=== PATIENT | male | born 1930 ===

== ENCOUNTER 2017-08-28 16:44 | Inpatient (IN) | payer MEDICARE, OTHER ==
[2017-08-28] MEDS ORDERED: Succinylcholine Chloride 20 MG/ML 10 ml SYRINGE FS ONE (16:50)
[2017-08-28] MEDS ORDERED: Fentanyl 100 MCG/2 ML VIAL ONE (17:04)
[2017-08-28] MEDS ORDERED: Midazolam HCl 2 mg/2 ml Vial ONE (17:04)
[2017-08-28] MEDS ORDERED: Albuterol Sulfate 2.5 mg/3 ml Neb ONE (17:11)
[2017-08-28] MEDS ORDERED: Albuterol Sulfate 2.5 mg/0.5 ml Neb ONE (17:11)
[2017-08-28] MEDS ORDERED: Fentanyl 20 MCG/ML 250 ML ONE (17:16)
[2017-08-28 17:25] LABS: #Basophils 0.1 thou/uL (0.0-0.2); #Eosinphils 0.8 thou/uL (0.0-0.7); #Lymphocytes 1.2 thou/uL (1.20-3.40); #Monocytes 0.6 thou/uL (0.11-0.59); #Neutrophils 4.4 thou/uL (1.40-6.50); %Basophils 0.9 % (0.0-1.0); %Eosinophils 11.1 % (0.0-10.0); %Lymphocytes 17.4 % (21.0-51.0); %Monocytes 8.7 % (0.0-10.0); Hematocrit 42.8 % (42.0-52.0); Mean Platelet Volume 7.1 fL (7.4-10.4); Red Blood Cell (RBC) Count 4.17 mill/uL (4.70-6.10); White Blood Cell (WBC) Count 7.1 thou/uL (4.8-10.8)
[2017-08-28 17:35] LABS: Oxyhemoglobin 95.2 % (94.0-97.0); Sodium 144 mmol/L (135-148)
[2017-08-28 17:37] LABS: Mechanical Tidal Volume 450 ml; Modified Allen's Test POSITIVE; Vent YES
[2017-08-28 17:38] LABS: Mode SIMV; Pressure Support 10 cmH2O
[2017-08-28 17:46] LABS: ALT (SGPT) 14 U/L (8-55); AST (SGOT) 14 U/L (5-34); Alkaline Phosphatase 89 U/L (40-150); Anion Gap 16 mmol/L (10-20); BUN (Urea Nitrogen) 20 mg/dL (8.4-25.7); Bilirubin, Total 0.4 mg/dL (0.2-1.2); Calc. Creatinine Clearance 0 mL/min (70-130); Calcium 9.1 mg/dL (7.8-10.44); Carbon Dioxide 26 mmol/L (23-31); Chloride 107 mmol/L (98-107); Estimated GFR-MDRD Greater than 90; Protein, Total 7.2 g/dL (5.8-8.1)
[2017-08-28 17:51] LABS: Troponin I 0.015 ng/mL (< 0.028)
[2017-08-28] MEDS ORDERED: Azithromycin 500 MG VIAL ONE (18:03)
[2017-08-28] MEDS ORDERED: methylPREDNISolone Sod Succ/PF 125 MG/2 ML VIAL ONE (18:03)
[2017-08-28] MEDS ORDERED: Water For Inject, Bacteriostat 30 ML ONE (18:03)
[2017-08-28] MEDS ORDERED: Acetaminophen 650 MG Suppository PR PRN (18:09)
[2017-08-28] MEDS ORDERED: Acetaminophen 325 MG TAB PO PRN (18:09)
[2017-08-28] MEDS ORDERED: cefTRIAXone\\ROCEPHIN 2 GM in Sodium Chloride 0.9% 100 ML IVPB SCH (18:15)
--- NOTE | 2017-08-28 18:34 | RAD ---
FRONTAL VIEW CHEST: 08/28/17 HISTORY: Intubation. FINDINGS: Endotracheal tube is present with tip between the thoracic inlet and abebe. There is flattening of the hemidiaphragms. The cardiac silhouette is enlarged and there is prominence of pulmonary vascular calcifications. IMPRESSION: 1. Endotracheal tube located between thoracic inlet and abebe. 2. COPD. 3. Enlarged cardiac silhouette and prominence of pulmonary vasculature which may be related to CHF. Correlate clinically. POS: ROXANA
[2017-08-28] MEDS ORDERED: Propofol 1,000 MG/100 ML VIAL IV PRN (20:06)
[2017-08-28] MEDS ORDERED: Fentanyl 20 MCG/ML 250 ML IVPB SCH (20:06)
[2017-08-28] MEDS ORDERED: Lorazepam 2 MG/ML VIAL SLOW IVP PRN (20:06)
[2017-08-28] MEDS ORDERED: DISCONTINUE PREVIOUS NARCOTIC PAIN MEDICATIONS AND BENZODIAZEPINES FS SCH (20:06)
[2017-08-28] MEDS ORDERED: MORPHINE 10 MG/ML SYRINGE IV PRN (20:07)
--- NOTE | 2017-08-28 20:34 | HP ---
PRIMARY CARE PHYSICIAN: Ramiro Abdi M.D. CHIEF COMPLAINT: Hypoxia. HISTORY OF PRESENT ILLNESS: Mr. Graves is an 86-year-old gentleman who was seen at [facility] on 08/28/2017 following transfer from the emergency room at [place]. He is currently intubated and mechanically ventilated, unable to provide any significant history. H istory was obtained from review of the medical record and from discussion with the emergency room ph ysician as well as with his family members. He is a [facility] patient who had a stroke approximately a year ago. He was hospitalized at [facility] towards the end of 03/2017 for altered mental status likely due to uri nary tract infection. He has reportedly been \\\\"sick\\\\" for a week. He was also reportedly less alert. EMS was called be cause of hypoxia. According to the nursing staff, he had vomitus when EMS saw him. He was hypoxic and was therefore transferred to the emergency room at [place]. He continued to be hypoxic and wa s started on CPAP. After he came to the emergency room at [facility], he was intubated for mechanical ventilation. REVIEW OF SYSTEMS: Could not be completed because of patient's intubated status. PAST MEDICAL HISTORY: Significant for colon cancer, atherosclerosis, benign prostatic hypertrophy, atrial fibrillation, dyslipidemia, cerebrovascular accident with right-sided hemiplegia, hypertensio n and aphasia. PAST SURGICAL HISTORY: Significant for cholecystectomy, hernia repair, and colectomy. PSYCHIATRIC HISTORY: Significant for anxiety. SOCIAL HISTORY: No history of tobacco use, alcohol use or recreational drug use. Patient is a [facility] resident. FAMILY HISTORY: Could not be obtained. CODE STATUS: I discussed his code status with his son and [id number]. The patient is a DNR, b ut they are agreeable with him being intubated. ALLERGIES: IODINE, METOPROLOL, STATINS and SULFA. CURRENT MEDICATIONS: Include Eliquis 5 mg every 12 hours and lisinopril 20 mg daily. PHYSICAL EXAMINATION: GENERAL: Mr. Graves is intubated, mechanically ventilated, unresponsive. VITAL SIGNS: Blood pressure is 130/94, pulse is 90. He is breathing at rate of 12 and saturating 1 00% on the ventilator. He is afebrile. EYES: No scleral icterus. No conjunctival pallor. Pupils approximately 3 mm bilateral, sluggishly reactive to light. ENT: Endotracheal tube in place. NECK: No cervical lymphadenopathy, no thyromegaly, trachea is midline. RESPIRATORY: Accessory muscles of breathing are not active. Chest wall movements are symmetric mike aterally. LUNGS: Reveals a few bibasilar crackles. CARDIOVASCULAR: S1 and S2 are heard, irregular. Peripheral pulses palpable. No carotid bruit, no pericardial rub. ABDOMEN: Soft, nontender, bowel sounds heard, no hepatomegaly, no splenomegaly. NEUROLOGIC: No facial droop. Patient is not moving his right upper extremity. Right lower extremi ty appears to have a contracture at the knee. He is moving left-sided extremities in response to pa inful stimuli. MUSCULOSKELETAL: Power in four extremities as described above. SKIN: No rashes or subcutaneous nodules. LYMPHATIC: No cervical lymphadenopathy. PSYCHIATRIC: Unable to assess mood, affect or orientation to person, place or time. LABORATORY DATA: Mr. Graves's labs and investigations were reviewed. I reviewed his chest x-ray, which shows vascular congestion. He also had a plain CT scan of the brain, which did not show any a cute changes. I also reviewed his electrocardiogram, which shows atrial fibrillation, no ST changes to suggest an acute coronary syndrome. Laboratory investigations show a normal white count, macroc ytic anemia with hemoglobin 13.9, normal platelet count, unremarkable comprehensive metabolic profil e. Arterial blood gases show pH of 7.30, pCO2 of 57.8 and pO2 of 99.9. ASSESSMENT AND PLAN: Mr. Graves is an 86-year-old gentleman who was seen at [facility] following transfer from [place] [facility]. His problem list includes: 1. Acute hypercapnic respiratory failure: Mr. Graves is currently intubated and mechanically vent ilated. He will be admitted to the Critical Care Unit for further management. He is also on a fent anyl drip for sedation. Pulmonology Service is being consulted by the emergency room physician. 2. Aspiration pneumonia: Suspected, given history of vomitus when EMS arrived. We will start him on Zosyn and levofloxacin. We will follow blood cultures. 3. Hypertension: The patient is unable to take any oral medications at this time. We will start p .r.n. antihypertensives. 4. History of atrial fibrillation. Resume Eliquis when patient is able to take oral medications. 5. Deep venous thrombosis prophylaxis with SCD boots for now. 6. History of cerebrovascular accident. Continue home medications when patient is able to take ora l medications. LEVEL OF RISK: High. LEVEL OF COMPLEXITY: High.
[2017-08-28 20:43] LABS: Oxyhemoglobin 95.2 % (94.0-97.0); Sodium 144 mmol/L (135-148)
[2017-08-28 20:44] LABS: Mechanical Tidal Volume 450 ml; Mode SIMV; Modified Allen's Test POSITIVE; Pressure Support 10 cmH2O; Vent YES
[2017-08-28] MEDS: Piperacillin/Tazobactam 4.5 GM in Sodium Chloride 0.9% 100 ML IVPB SCH (20:46)
[2017-08-28] MEDS: Sodium Chloride 0.9% 1,000 ML IV SCH (20:48)
[2017-08-28] MEDS ORDERED: Cefepime 2 GM in Sodium Chloride 0.9% 100 ML IVPB SCH (21:00)
[2017-08-28] MEDS ORDERED: Piperacillin/Tazobactam 4.5 GM in Sodium Chloride 0.9% 100 ML IVPB SCH (22:00)
[2017-08-28] MEDS ORDERED: Cefepime 2 GM, Syringe 2.5 ML in Sterile Water 10 ML SLOW IVP SCH (23:00)
[2017-08-29] MEDS: Sodium Chloride 0.9% 1,000 ML IV SCH ×2 (03:12→10:33)
[2017-08-29] MEDS: Piperacillin/Tazobactam 4.5 GM in Sodium Chloride 0.9% 100 ML IVPB SCH ×3 (05:21→22:10)
[2017-08-29 05:36] LABS: #Lymphocytes 0.2 thou/uL (1.20-3.40); #Monocytes 0.1 thou/uL (0.11-0.59); #Neutrophils 6.5 thou/uL (1.40-6.50); %Eosinophils 0.3 % (0.0-10.0); %Lymphocytes 3.4 % (21.0-51.0); %Monocytes 1.9 % (0.0-10.0); Hematocrit 37.6 % (42.0-52.0); Mean Platelet Volume 7.3 fL (7.4-10.4); Red Blood Cell (RBC) Count 3.64 mill/uL (4.70-6.10); White Blood Cell (WBC) Count 6.9 thou/uL (4.8-10.8)
[2017-08-29 06:06] LABS: Anion Gap 12 mmol/L (10-20); BUN (Urea Nitrogen) 23 mg/dL (8.4-25.7); Calc. Creatinine Clearance 0 mL/min (70-130); Calcium 8.4 mg/dL (7.8-10.44); Carbon Dioxide 24 mmol/L (23-31); Chloride 108 mmol/L (98-107); Estimated GFR-MDRD Greater than 90
[2017-08-29 06:32] LABS: Sodium 143 mmol/L (135-148)
[2017-08-29 06:33] LABS: Mechanical Tidal Volume 450 ml; Mode SIMV/PSV; Modified Allen's Test POSITIVE; Pressure Support 10 cmH2O; Vent YES
[2017-08-29] MEDS ORDERED: FLU VACC TS2017-18 (>65YR) 0.5 ML SYRINGE IM ONE (09:00)
--- NOTE | 2017-08-29 13:00 | PDOC.PN ---
- Subjective Encounter Start Date: 08/29/17 Encounter Start Time: 08:40 -: non-verbal Pt seen for followup re: acute respiratory failure. Intubated, unable to complete ROS. - Objective MAR Reviewed: Yes Vital Signs & Weight: Vital Signs (12 hours) Temp Pulse Resp BP Pulse Ox 08/29/17 12:00 98.5 F 95 08/29/17 10:20 89 24 H 100 08/29/17 10:07 124 H 137/90 08/29/17 10:00 19 08/29/17 08:00 98.6 F 106 H 15 99 08/29/17 06:23 61 104/55 L 08/29/17 06:00 16 08/29/17 04:00 16 08/29/17 03:00 97.8 F 08/29/17 02:00 12 Weight Weight 2.797 oz Most Recent Monitor Data Heart Rate from ECG 100 NIBP 138/100 NIBP BP-Mean 116 Respiration from ECG 15 SpO2 97 I&O: 08/28/17 08/29/17 08/30/17 06:59 06:59 06:59 Intake Total 1380 18.8 Output Total 440 280 Balance 940 -261.2 Result Diagrams: 08/29/17 03:55 08/29/17 03:55 EKG Reviewed by me: Yes (Tele: poonam madrid) Phys Exam - Physical Examination Constitutional: NAD HEENT: moist MMs, sclera anicteric Pupils 3 mm mike, sluggishly reactive Neck: no nodes, supple Respiratory: no wheezing, no rales, no rhonchi, clear to auscultation bilateral Cardiovascular: no rub, irregular Gastrointestinal: soft, non-tender, positive bowel sounds distention Musculoskeletal: pulses present Not moving RUE and RLE, moving LUE and LLE Deviation from normal: Unable to assess mood, affect or orientation to person, place or time Skin: no rash, normal turgor, cap refill <2 seconds Dx/Plan (1) Acute respiratory failure Code(s): J96.00 - ACUTE RESPIRATORY FAILURE, UNSP W HYPOXIA OR HYPERCAPNIA Status: Acute (2) Aspiration pneumonia Code(s): J69.0 - PNEUMONITIS DUE TO INHALATION OF FOOD AND VOMIT Status: Acute (3) History of CVA (cerebrovascular accident) Code(s): Z86.73 - PRSNL HX OF TIA (TIA), AND CEREB INFRC W/O RESID DEFICITS Status: Chronic (4) Dyslipidemia Code(s): E78.5 - HYPERLIPIDEMIA, UNSPECIFIED Status: Chronic (5) HTN (hypertension) Code(s): I10 - ESSENTIAL (PRIMARY) HYPERTENSION Status: Chronic (6) BPH (benign prostatic hyperplasia) Code(s): N40.0 - BENIGN PROSTATIC HYPERPLASIA WITHOUT LOWER URINRY TRACT SYMP Status: Chronic - Plan continue antibiotics, PT/OT, DVT proph w/SCDs * . Continue IV Zosyn, IV levofloxacin for suspected aspiration pneumonia. PCCM following. GI prophylaxis with Protonix. Eliquis when pt can take oral meds. Review of Systems - Medications/Allergies Allergies/Adverse Reactions: Allergies Allergy/AdvReac Type Severity Reaction Status Date / Time iodine Allergy Verified 08/28/17 21:45 metoprolol Allergy Verified 08/28/17 21:45 Cjxdipd-Baz-Mkx Reductase Allergy Verified 08/28/17 21:45 Inhibitor Sulfa (Sulfonamide Allergy Verified 08/28/17 21:45 Antibiotics) Medications: Current Medications Acetaminophen (Tylenol) 650 mg PO Q4H PRN PRN Reason: Headache/Fever or Pain Acetaminophen (Tylenol) 650 mg CA Q4H PRN PRN Reason: Headache/Fever or Pain Hydralazine HCl (Apresoline) 10 mg SLOW IVP Q6H PRN PRN Reason: SBP Greater Than 170 Levofloxacin 750 mg/ Device 150 mls @ 100 mls/hr IVPB 2000 ENIO Last Admin: 08/28/17 20:47 Dose: 150 mls Sodium Chloride (Normal Saline 0.9%) 1,000 mls @ 125 mls/hr IV .Q8H [facility] Last Admin: 08/29/17 10:33 Dose: 1,000 mls Piperacillin Sod/Tazobactam (Sod 4.5 gm/ Sodium Chloride) 100 mls @ 200 mls/hr IVPB Q8HR ENIO Last Admin: 08/29/17 05:21 Dose: 100 mls Fentanyl (Fentanyl Cadd) 250 mls @ 0 mls/hr IVPB INF ENIO; Titrate PRN Reason: Protocol Stop: 09/27/17 20:06 Fentanyl Citrate (Fentanyl Bolus) 250 mls @ 0 mls/hr IVPB PRN PRN; As Directed PRN Reason: VENTILATION SEDATION PROTOCOL Stop: 09/27/17 20:06 Lorazepam (Ativan) 2 mg SLOW IVP Q2H PRN PRN Reason: Anxiety to achieve Li 2-3 Stop: 09/27/17 20:06 Morphine Sulfate (Morphine) 2 mg IV Q2H PRN PRN Reason: TO ACHIEVE HENRIQUE SCORE 2-3 Propofol (Diprivan) 1,000 mg IV INF PRN; Protocol PRN Reason: TO ACHIEVE LI SCORE 2-3 Stop: 09/27/17 20:06 Last Admin: 08/29/17 05:21 Dose: 1,000 mg
[2017-08-29] MEDS ORDERED: methylPREDNISolone Sod Succ/PF 125 MG/2 ML VIAL IVP SCH (14:45)
[2017-08-29] MEDS: Sodium Chloride 0.45% 1,000 ML IV SCH ×2 (15:10→22:14)
--- NOTE | 2017-08-29 15:55 | CON ---
DATE OF SERVICE: 08/29/2017 SERVICE: Pulmonary Medicine. REASON FOR CONSULTATION: Respiratory failure. HISTORY OF PRESENT ILLNESS: The patient is an 86-year-old white male with past medical history sign ificant for left-sided CVA with residual right-sided hemiplegia and aphasia, who presents to the [facility] because he was altered in his nursing facility at [facility]. The patient has been ill for a w apache. Ultimately, EMS services were contacted because of hypoxemia which he typically does not have. There was concern that the patient perhaps had some aspiration because vomit was identified in his mouth by EMS services. He was brought to the emergency department. Initially, the BiPAP for a cheng ef period of time, but subsequently after the family revoked his DNI status, he was subsequently int ubated. Currently, he is on mechanical ventilation. He cannot provide any additional elements of t he history. PAST MEDICAL HISTORY: 1. History of CVA with dense right-sided hemiplegia. 2. Hypertension. 3. 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 4. Dyslipidemia. 5. Atrial fibrillation. 6. BPH. 7. Coronary artery disease. 8. History of colon cancer. PAST SURGICAL HISTORY: 1. Cholecystectomy. 2. Herniorrhaphy. 3. Colectomy. SOCIAL HISTORY: Negative for alcohol, tobacco or illicit drug use. He currently lives in a nursing facility and has been there for over a year. FAMILY HISTORY: Noncontributory. ALLERGIES: IODINE, METOPROLOL, STATINS, SULFA. MEDICATIONS: List of inpatient medications was reviewed. Multiple updates were made at this time. REVIEW OF SYSTEMS: Cannot be obtained as the patient is currently mechanically ventilated and sedat ed. LABORATORY: WBC 6.9, hemoglobin 12.2, platelets 204,000. Neutrophils 94%. Lymphocytes are quite l ow. PH 7.35, pCO2 of 47, pO2 85. Basic metabolic profile is unremarkable. Liver function studies were also unremarkable. Cardiac enzymes are negative. Blood cultures x2 are unremarkable. IMAGING: Chest x-ray demonstrates endotracheal tube located in okay position. Hyperexpansion is ev ident. Enlarged cardiac silhouette and prominence of pulmonary vasculature is identified without ov ert signs of heart failure. ASSESSMENT: 1. Acute hypoxic respiratory failure, resolving. 2. Chronic obstructive pulmonary disease with acute exacerbation, possible. 3. Possible aspiration secondary to oropharyngeal dysphagia. 4. History of cerebrovascular accident. 5. Severe sepsis. PLAN: The patient is doing fine from a cardiovascular and a respiratory standpoint. His hemodynami cs are stable. I am not certain exactly what his baseline is, but he is on minimal oxygen at this p oint and there does not look to be any significant obstructive lung disease based on the ventilator waveforms. We will put him on spontaneous breathing trial. If he meets criteria, extubation will b e considered after very long sedation holiday. We will continue low doses of steroids and provide h im with nebulized medications scheduled every 6 hours. Pulmonary Critical Care will continue to fol low. Critical care time: 45 minutes.
[2017-08-29] MEDS: Apixaban 5 MG TAB PO SCH (20:36)
[2017-08-29] MEDS ORDERED: Pantoprazole 40 MG VIAL IVP SCH (21:00)
[2017-08-30] MEDS ORDERED: Haloperidol Lactate 5 MG/ML VIAL SLOW IVP SCH ×2 (01:45→04:30)
[2017-08-30] MEDS ORDERED: Morphine 4 MG/ML Carpuject SLOW IVP PRN (04:17)
[2017-08-30 04:25] LABS: #Lymphocytes 0.4 thou/uL (1.20-3.40); #Monocytes 0.7 thou/uL (0.11-0.59); #Neutrophils 7.6 thou/uL (1.40-6.50); %Basophils 0.1 % (0.0-1.0); %Eosinophils 0.3 % (0.0-10.0); %Lymphocytes 4.2 % (21.0-51.0); %Monocytes 8.4 % (0.0-10.0); Hematocrit 37.5 % (42.0-52.0); Mean Platelet Volume 7.1 fL (7.4-10.4); Red Blood Cell (RBC) Count 3.68 mill/uL (4.70-6.10); White Blood Cell (WBC) Count 8.7 thou/uL (4.8-10.8)
[2017-08-30] MEDS: Diltiazem HCl 125 MG, Admixture Fee 1 EACH in Sodium Chloride 0.9% 100 ML SLOW IVP SCH ×2 (04:35→15:05)
[2017-08-30 04:43] LABS: Anion Gap 10 mmol/L (10-20); BUN (Urea Nitrogen) 26 mg/dL (8.4-25.7); Calc. Creatinine Clearance 76 mL/min (70-130); Carbon Dioxide 24 mmol/L (23-31); Chloride 110 mmol/L (98-107); Estimated GFR-MDRD Greater than 90
[2017-08-30] MEDS: Piperacillin/Tazobactam 4.5 GM in Sodium Chloride 0.9% 100 ML IVPB SCH ×3 (05:06→22:44)
[2017-08-30] MEDS: Apixaban 5 MG TAB PO SCH ×2 (10:39→22:44)
[2017-08-30] MEDS: Digoxin 0.125 MG TAB PO SCH (10:39)
[2017-08-30] MEDS ORDERED: Lorazepam 0.5 MG TAB PO PRN (11:14)
[2017-08-30] MEDS: Lorazepam 2 MG/ML VIAL SLOW IVP PRN ×2 (11:25→17:53)
[2017-08-30] MEDS ORDERED: Lactated Ringer's 1,000 ML IV SCH (13:45)
--- NOTE | 2017-08-30 13:46 | PRG ---
DATE OF SERVICE: 08/30/2017 SERVICE: Pulmonary Medicine. INTERVAL HISTORY: The patient is doing fine from a respiratory standpoint. He is breathing comfortably. He continues to have some wheezing and a slightly prolonged expiratory phase. Today, he is answering some simple questions. The family was here yesterday evening. They suggested that he is actually at his baseline. There were no overnight events except for some tachyarrhythmia associated with his atrial fibrillation. The Cardizem drip was initiated. PHYSICAL EXAMINATION: VITAL SIGNS: Afebrile, pulse 109, blood pressure 171/91, respirations 18, saturation 98% on room air. GENERAL: Patient is awake, alert, in no apparent distress. LUNGS: Excellent air entry with slightly prolonged expiratory phase. Wheezing is present. I do not appreciate crackles. Rhonchi are there. He does not cough very much. HEART: Tachycardic. Irregular. ABDOMEN: Soft, nontender, nondistended. Bowel sounds positive. MUSCULOSKELETAL: No cyanosis or clubbing. There is no pitting in the bilateral lower extremities. He does have a skin tempting. LABORATORY DATA: WBC 8.7, hemoglobin 12.5, platelets 210,000. Basic metabolic profile is essentially unremarkable except for a chloride of 110 and sodium of 140. Blood cultures x2 are unremarkable. ASSESSMENT: 1. Acute hypoxic respiratory failure, resolved. 2. Chronic obstructive pulmonary disease with acute exacerbation, possible. 3. Community acquired pneumonia secondary to aspiration, suspected. 4. History of cerebrovascular accident, severe. 5. Severe sepsis. 6. Debility. 7. Protein calorie malnutrition. PLAN: We will continue our palliative discussions moving forward with the patient's family. The family suggests that he is currently at his baseline. I will give him a liter of fluid as clinically he is a touch dry. This may help with his heart rate. From a purely respiratory perspective, he is stable for transition out of the ICU to the telemetry unit. Pulmonary will continue to follow while he remains in this location. HENRY
[2017-08-30] MEDS: Sodium Chloride 0.45% 1,000 ML IV SCH (16:42)
--- NOTE | 2017-08-30 17:50 | PDOC.PN ---
- Subjective Encounter Start Date: 08/30/17 Encounter Start Time: 17:00 -: non-verbal Pt seen for followup re: acute respiratory failure. Sleepy but arousable, not answering questions at this time, unable to complete ROS. - Objective Resuscitation Status: Resuscitation Status DNR:Do Not Resuscitate MAR Reviewed: Yes Vital Signs & Weight: Vital Signs (12 hours) Temp Pulse Pulse Pulse Resp BP BP 08/30/17 12:29 109 H 20 08/30/17 12:00 97.7 F 08/30/17 10:39 123 H 08/30/17 09:34 127 H 114 H 158/75 H 174/113 H 08/30/17 07:58 97.6 F 123 H 20 08/30/17 07:07 123 H 20 08/30/17 07:00 97.6 F Pulse Ox 08/30/17 12:29 98 08/30/17 12:00 08/30/17 10:39 08/30/17 09:34 08/30/17 07:58 96 08/30/17 07:07 98 08/30/17 07:00 Weight Weight 176 lb 9.444 oz Most Recent Monitor Data Heart Rate from ECG 128 NIBP 162/100 NIBP BP-Mean 145 Respiration from ECG 20 SpO2 94 I&O: 08/29/17 08/30/17 08/31/17 06:59 06:59 06:59 Intake Total 1380 2425.8 1150 Output Total 872 305 2647 Balance 940 1535.8 -125 Result Diagrams: 08/30/17 04:07 08/30/17 04:07 EKG Reviewed by me: Yes (Tele: poonam madrid) Phys Exam - Physical Examination Constitutional: NAD HEENT: moist MMs, sclera anicteric, oral pharynx no lesions Neck: no nodes Respiratory: clear to auscultation bilateral Cardiovascular: irregular Gastrointestinal: soft, non-tender Musculoskeletal: pulses present R hemiplegia Psychiatric: normal affect Skin: no rash Dx/Plan (1) Acute respiratory failure Code(s): J96.00 - ACUTE RESPIRATORY FAILURE, UNSP W HYPOXIA OR HYPERCAPNIA Status: Acute (2) Aspiration pneumonia Code(s): J69.0 - PNEUMONITIS DUE TO INHALATION OF FOOD AND VOMIT Status: Acute (3) History of CVA (cerebrovascular accident) Code(s): Z86.73 - PRSNL HX OF TIA (TIA), AND CEREB INFRC W/O RESID DEFICITS Status: Chronic (4) Dyslipidemia Code(s): E78.5 - HYPERLIPIDEMIA, UNSPECIFIED Status: Chronic (5) HTN (hypertension) Code(s): I10 - ESSENTIAL (PRIMARY) HYPERTENSION Status: Chronic (6) BPH (benign prostatic hyperplasia) Code(s): N40.0 - BENIGN PROSTATIC HYPERPLASIA WITHOUT LOWER URINRY TRACT SYMP Status: Chronic - Plan continue antibiotics, PT/OT, out of bed/ambulate, DVT proph w/SCDs * . Continue IV antibiotics as below. Pt on cardizem for a. fib with RVR. Clinically improving. Monitor vital signs, titrate antihypertensives as needed. Review of Systems - Medications/Allergies Allergies/Adverse Reactions: Allergies Allergy/AdvReac Type Severity Reaction Status Date / Time iodine Allergy Verified 08/28/17 21:45 metoprolol Allergy Verified 08/28/17 21:45 Mdnxkdi-Zfw-Owt Reductase Allergy Verified 08/28/17 21:45 Inhibitor Sulfa (Sulfonamide Allergy Verified 08/28/17 21:45 Antibiotics) Medications: Current Medications Acetaminophen (Tylenol) 650 mg PO Q4H PRN PRN Reason: Headache/Fever or Pain Acetaminophen (Tylenol) 650 mg CA Q4H PRN PRN Reason: Headache/Fever or Pain Albuterol/Ipratropium (Duoneb) 3 ml NEB [id number] [facility] Last Admin: 08/30/17 12:29 Dose: 3 ml Apixaban (Eliquis) 5 mg PO BID [facility] Last Admin: 08/30/17 10:39 Dose: 5 mg Digoxin (Lanoxin) 0.125 mg PO DAILY [facility] Last Admin: 08/30/17 10:39 Dose: 0.125 mg Hydralazine HCl (Apresoline) 10 mg SLOW IVP Q6H PRN PRN Reason: SBP Greater Than 170 Piperacillin Sod/Tazobactam (Sod 4.5 gm/ Sodium Chloride) 100 mls @ 200 mls/hr IVPB Q8HR [facility] Last Admin: 08/30/17 13:54 Dose: 100 mls Sodium Chloride (1/2 Normal Saline) 1,000 mls @ 75 mls/hr IV [id number] [facility] Last Admin: 08/30/17 16:42 Dose: 1,000 mls Diltiazem HCl 125 mg/Miscellaneous Medication 1 each/ Sodium Chloride 125 mls @ 0 mls/hr SLOW IVP INF ENIO; As Directed PRN Reason: Protocol Last Admin: 08/30/17 15:05 Dose: 125 mls Lorazepam (Ativan) 0.5 mg PO TID PRN PRN Reason: Anxiety Lorazepam (Ativan) 0.5 mg SLOW IVP TID PRN PRN Reason: Anxiety/Agitation Last Admin: 08/30/17 11:25 Dose: 0.5 mg Methylprednisolone Sodium Succinate (Solu-Medrol) 40 mg IVP DAILY ENIO Last Admin: 08/30/17 10:40 Dose: 40 mg Sodium Chloride (Flush - Normal Saline) 10 ml IVF Q12HR ENIO Last Admin: 08/30/17 10:40 Dose: 10 ml Sodium Chloride (Flush - Normal Saline) 10 ml IVF PRN PRN PRN Reason: Saline Flush
[2017-08-31] MEDS: Lorazepam 2 MG/ML VIAL SLOW IVP PRN ×2 (01:06→11:57)
[2017-08-31] MEDS: Diltiazem HCl 125 MG, Admixture Fee 1 EACH in Sodium Chloride 0.9% 100 ML SLOW IVP SCH (01:07)
[2017-08-31 05:23] LABS: #Lymphocytes 0.6 thou/uL (1.20-3.40); #Monocytes 0.8 thou/uL (0.11-0.59); #Neutrophils 6.5 thou/uL (1.40-6.50); %Eosinophils 0.3 % (0.0-10.0); %Lymphocytes 7.8 % (21.0-51.0); %Monocytes 10.2 % (0.0-10.0); Hematocrit 35.3 % (42.0-52.0); Mean Platelet Volume 7.3 fL (7.4-10.4); Red Blood Cell (RBC) Count 3.49 mill/uL (4.70-6.10); White Blood Cell (WBC) Count 7.9 thou/uL (4.8-10.8)
[2017-08-31 05:27] LABS: Anion Gap 13 mmol/L (10-20); BUN (Urea Nitrogen) 18 mg/dL (8.4-25.7); Calc. Creatinine Clearance 85 mL/min (70-130); Calcium 8.6 mg/dL (7.8-10.44); Carbon Dioxide 24 mmol/L (23-31); Chloride 106 mmol/L (98-107); Estimated GFR-MDRD Greater than 90
[2017-08-31] MEDS: Piperacillin/Tazobactam 4.5 GM in Sodium Chloride 0.9% 100 ML IVPB SCH ×3 (06:01→21:48)
[2017-08-31] MEDS: Sodium Chloride 0.45% 1,000 ML IV SCH ×2 (06:02→21:47)
[2017-08-31] MEDS ORDERED: Lactated Ringer's 1,000 ML IV SCH (09:00)
[2017-08-31] MEDS: Digoxin 0.125 MG TAB PO SCH (09:29)
[2017-08-31] MEDS: Apixaban 5 MG TAB PO SCH ×2 (09:29→21:47)
[2017-08-31] MEDS: Atenolol 50 MG TAB PO SCH ×2 (09:30→21:47)
--- NOTE | 2017-08-31 09:37 | PRG ---
DATE OF SERVICE: 08/31/2017 SERVICE: Pulmonary Medicine. INTERVAL HISTORY: The patient is doing fine from a respiratory standpoint. He currently has no com plaints of shortness of breath or chest discomfort. There were no significant overnight events. He is having significant urine output. As such, he is developing some recurrent volume depletion/dehy dration. PHYSICAL EXAMINATION: VITAL SIGNS: Afebrile, pulse 124, blood pressure 128/75, respirations 21, saturation 92% on room ai r. GENERAL: The patient is somnolent, but he does wake up with gentle stimulation. HEENT: Normocephalic, atraumatic. Sclerae are white, conjunctivae pink. Oral and nasal mucosa is moist without lesions. LUNGS: Decent air entry with no prolonged expiratory phase. There are some rhonchi present, but ch riya with cough. No prolonged expiratory phase, wheezing is appreciated. HEART: Normal rate, regular. ABDOMEN: Soft, nontender, nondistended. Bowel sounds positive. MUSCULOSKELETAL: No cyanosis or clubbing. There is no pitting in the bilateral lower extremities. LABORATORY: WBC 7.9, hemoglobin 11.5, platelets 202,000. Basic metabolic profile completely unrema rkable/stable. Blood cultures x2 are unremarkable. ASSESSMENT: 1. Acute hypoxic respiratory failure, resolved. 2. Chronic obstructive pulmonary disease with acute exacerbation, possible. 3. Community-acquired pneumonia secondary to aspiration, suspected. 4. History of cerebrovascular accident, severe. 5. Severe sepsis. 6. Debility. 7. Protein calorie malnutrition. PLAN: We will continue supportive care. At this point, the patient has no further requirements for ICU admission. As such, he can be transitioned to the telemetry unit. He is extraordinarily high risk for ongoing complications associated with his oropharyngeal dysphagia. My suspicion is that th e patient is at the end of his life. The family is actually interested in possibly pursuing PEG tub e placement. Palliative care discussions will be continued.
--- NOTE | 2017-08-31 11:55 | PDOC.PN ---
- Subjective Encounter Start Date: 08/31/17 Encounter Start Time: 09:00 Pt seen for followup re: acute respiratory failure. Moaning, not answering questions, unable to complete ROS. - Objective Resuscitation Status: Resuscitation Status DNR:Do Not Resuscitate MAR Reviewed: Yes Vital Signs & Weight: Vital Signs (12 hours) Temp Pulse Resp BP Pulse Ox 08/31/17 09:30 124 H 132/78 08/31/17 09:29 124 H 08/31/17 08:00 98.8 F 124 H 23 H 96 08/31/17 07:00 98.8 F 08/31/17 06:36 122 H 23 H 98 08/31/17 04:00 98.6 F 08/31/17 00:24 98 21 H 97 08/31/17 00:00 98.4 F Weight Weight 177 lb 11.081 oz Most Recent Monitor Data Heart Rate from ECG 127 NIBP 167/72 NIBP BP-Mean 110 Respiration from ECG 27 SpO2 97 I&O: 08/30/17 08/31/17 09/01/17 06:59 06:59 06:59 Intake Total 2425.8 3358 Output Total 890 3155 1700 Balance 1535.8 203 -1700 Result Diagrams: 08/31/17 03:27 08/31/17 03:27 EKG Reviewed by me: Yes (Tele: poonam madrid with RVR) Phys Exam - Physical Examination Constitutional: NAD HEENT: moist MMs, oral pharynx no lesions Neck: supple Respiratory: clear to auscultation bilateral S1, S2, tachy, irregular Gastrointestinal: soft, non-tender Musculoskeletal: pulses present R weakness Psychiatric: normal affect Skin: no rash Dx/Plan (1) Acute respiratory failure Code(s): J96.00 - ACUTE RESPIRATORY FAILURE, UNSP W HYPOXIA OR HYPERCAPNIA Status: Acute (2) Atrial fibrillation with RVR Code(s): I48.91 - UNSPECIFIED ATRIAL FIBRILLATION Status: Acute (3) Aspiration pneumonia Code(s): J69.0 - PNEUMONITIS DUE TO INHALATION OF FOOD AND VOMIT Status: Acute (4) History of CVA (cerebrovascular accident) Code(s): Z86.73 - PRSNL HX OF TIA (TIA), AND CEREB INFRC W/O RESID DEFICITS Status: Chronic (5) Dyslipidemia Code(s): E78.5 - HYPERLIPIDEMIA, UNSPECIFIED Status: Chronic (6) HTN (hypertension) Code(s): I10 - ESSENTIAL (PRIMARY) HYPERTENSION Status: Chronic (7) BPH (benign prostatic hyperplasia) Code(s): N40.0 - BENIGN PROSTATIC HYPERPLASIA WITHOUT LOWER URINRY TRACT SYMP Status: Chronic - Plan continue antibiotics, PT/OT, out of bed/ambulate, DVT proph w/SCDs * . Continue IV aantibiotics as below. Continue Cardizem drip. Transfer to telemetry floor. Review of Systems - Medications/Allergies Allergies/Adverse Reactions: Allergies Allergy/AdvReac Type Severity Reaction Status Date / Time iodine Allergy Verified 08/28/17 21:45 metoprolol Allergy Verified 08/28/17 21:45 Vtfbhql-Hhv-Phk Reductase Allergy Verified 08/28/17 21:45 Inhibitor Sulfa (Sulfonamide Allergy Verified 08/28/17 21:45 Antibiotics) Medications: Current Medications Acetaminophen (Tylenol) 650 mg PO Q4H PRN PRN Reason: Headache/Fever or Pain Acetaminophen (Tylenol) 650 mg [place] Q4H PRN PRN Reason: Headache/Fever or Pain Albuterol/Ipratropium (Duoneb) 3 ml NEB [id number] [facility] Last Admin: 08/31/17 06:36 Dose: 3 ml Apixaban (Eliquis) 5 mg PO BID [facility] Last Admin: 08/31/17 09:29 Dose: 5 mg Atenolol (Tenormin) 50 mg PO BID [facility] Last Admin: 08/31/17 09:30 Dose: 50 mg Digoxin (Lanoxin) 0.125 mg PO DAILY [facility] Last Admin: 08/31/17 09:29 Dose: 0.125 mg Hydralazine HCl (Apresoline) 10 mg SLOW IVP Q6H PRN PRN Reason: SBP Greater Than 170 Piperacillin Sod/Tazobactam (Sod 4.5 gm/ Sodium Chloride) 100 mls @ 200 mls/hr IVPB Q8HR [facility] Last Admin: 08/31/17 06:01 Dose: 100 mls Sodium Chloride (1/2 Normal Saline) 1,000 mls @ 75 mls/hr IV .[id number] [facility] Last Admin: 08/31/17 06:02 Dose: 1,000 mls Diltiazem HCl 125 mg/Miscellaneous Medication 1 each/ Sodium Chloride 125 mls @ 0 mls/hr SLOW IVP INF [facility]; As Directed PRN Reason: Protocol Last Admin: 08/31/17 01:07 Dose: 125 mls Lorazepam (Ativan) 0.5 mg PO TID PRN PRN Reason: Anxiety Lorazepam (Ativan) 0.5 mg SLOW IVP TID PRN PRN Reason: Anxiety/Agitation Last Admin: 08/31/17 01:06 Dose: 0.5 mg Methylprednisolone Sodium Succinate (Solu-Medrol) 40 mg IVP DAILY [facility] Last Admin: 08/31/17 09:29 Dose: 40 mg Sodium Chloride (Flush - Normal Saline) 10 ml IVF Q12HR [facility] Last Admin: 08/31/17 09:30 Dose: 10 ml Sodium Chloride (Flush - Normal Saline) 10 ml IVF PRN PRN PRN Reason: Saline Flush
[2017-08-31] MEDS: Sodium Chloride 0.9% 1,000 ML IV SCH (21:47)
[2017-09-01] MEDS: Lorazepam 2 MG/ML VIAL SLOW IVP PRN ×2 (01:58→15:00)
[2017-09-01] MEDS: Piperacillin/Tazobactam 4.5 GM in Sodium Chloride 0.9% 100 ML IVPB SCH ×3 (05:18→21:59)
[2017-09-01] MEDS: Sodium Chloride 0.9% 1,000 ML IV SCH ×3 (05:18→22:00)
[2017-09-01] MEDS ORDERED: Sodium Chloride 0.9% 10 ML ONE (09:01)
[2017-09-01] MEDS: Digoxin 0.125 MG TAB PO SCH (09:09)
[2017-09-01] MEDS: Atenolol 50 MG TAB PO SCH ×2 (09:09→22:00)
[2017-09-01] MEDS: Apixaban 5 MG TAB PO SCH (09:09)
--- NOTE | 2017-09-01 10:23 | PRG ---
DATE OF SERVICE: 09/01/2017 SERVICE: Pulmonary Medicine. INTERVAL HISTORY: The patient is doing fine from a respiratory standpoint. He is back on to room air and his saturations are fantastic. He is able to follow extraordinarily simple commands. Whenever we asked him questions, he makes some incomprehensible sounds, but otherwise, it is my understanding he is back to his usual state. He cannot provide additional elements to the history, but there were no overnight events. PHYSICAL EXAMINATION: VITAL SIGNS: Afebrile, pulse 126, blood pressure 159/119, respirations 24, saturation 99% on room air. GENERAL: The patient is somnolent. That being said, he seems to be awake and stays there for long extended periods of time without significant stimulation. HEENT: Normocephalic, atraumatic. Sclerae are white, conjunctivae pink. Oral and nasal mucosa is moist without lesions. LUNGS: Excellent air entry. There are some rhonchi present. No prolonged expiratory phase is present. Minimal wheezing is present at the end of expiration. HEART: Tachycardic. Regular. ABDOMEN: Soft, nontender, nondistended. Bowel sounds positive. MUSCULOSKELETAL: No cyanosis or clubbing. No pitting in the bilateral lower extremities. NEUROLOGIC: Grossly nonfocal. ASSESSMENT: 1. Acute hypoxic respiratory failure, resolved. 2. Chronic obstructive pulmonary disease with acute exacerbation, possible. 3. Community-acquired pneumonia secondary to aspiration, suspected. 4. History of cerebrovascular accident, severe. 5. Debility with bed bound status. 6. Static encephalopathy. 7. Severe sepsis, resolving. 8. Protein calorie malnutrition. 9. Tachycardia. PLAN: We will continue the supportive care. He has no further requirements for inpatient ICU observation. As such, he can be transitioned to the telemetry unit. We will continue our discussion with the family. Today, the two daughters are going to be here. I do think that transitioning over to comfort care only would be appropriate for this patient. From what I understand , this is his baseline. Additionally, he is unable to protect his airway in a meaningful way and he is most likely going to have recurrent episodes of pneumonia and an infectious process as time goes on. I do not think PEG tube would decrease his risk of aspiration, or presentations to the hospital for recurrent infections. If that is truly what the patient would want for himself , however, then we will proceed with that. MTDD
--- NOTE | 2017-09-01 11:25 | PDOC.PN ---
- Subjective Encounter Start Date: 09/01/17 Encounter Start Time: 10:00 Subjective: keeps moaning, not oriented -: moves left extr better than right - Objective Resuscitation Status: Resuscitation Status DNR:Do Not Resuscitate MAR Reviewed: Yes Vital Signs & Weight: Vital Signs (12 hours) Temp Pulse Resp BP Pulse Ox 09/01/17 09:09 124 H 159/119 H 09/01/17 07:00 98.1 F 09/01/17 06:15 106 H 22 H 98 09/01/17 04:00 98.0 F 09/01/17 01:14 127 H 14 94 L 09/01/17 00:00 98.7 F Weight Weight 175 lb 14.862 oz Most Recent Monitor Data Heart Rate from ECG 124 NIBP 174/125 NIBP BP-Mean 138 Respiration from ECG 29 SpO2 96 I&O: 08/31/17 09/01/17 09/02/17 06:59 06:59 06:59 Intake Total 3358 3513 60 Output Total 3152 9465 375 Balance 203 -1292 -315 Result Diagrams: 08/31/17 03:27 08/31/17 03:27 Phys Exam - Physical Examination HEENT: PERRLA, moist MMs Neck: no JVD, supple Respiratory: no wheezing, no rales Cardiovascular: no significant murmur, irregular Gastrointestinal: soft, no distention, positive bowel sounds Musculoskeletal: no edema, pulses present Neurological: moves all 4 limbs has right hemiparesis with better movement in lower limb Dx/Plan (1) Acute respiratory failure Code(s): J96.00 - ACUTE RESPIRATORY FAILURE, UNSP W HYPOXIA OR HYPERCAPNIA Status: Resolved Qualifiers: Respiratory failure complication: hypoxia Qualified Code(s): J96.01 - Acute respiratory failure with hypoxia (2) Aspiration pneumonia Code(s): J69.0 - PNEUMONITIS DUE TO INHALATION OF FOOD AND VOMIT Status: Acute Qualifiers: Aspiration pneumonia type: due to gastric secretions Laterality: bilateral (3) Atrial fibrillation with RVR Code(s): I48.91 - UNSPECIFIED ATRIAL FIBRILLATION Status: Acute (4) BPH (benign prostatic hyperplasia) Code(s): N40.0 - BENIGN PROSTATIC HYPERPLASIA WITHOUT LOWER URINRY TRACT SYMP Status: Chronic Qualifiers: Lower urinary tract symptom presence: unspecified whether lower urinary tract symptoms present Qualified Code(s): N40.0 - Benign prostatic hyperplasia without lower urinary tract symptoms (5) Dyslipidemia Code(s): E78.5 - HYPERLIPIDEMIA, UNSPECIFIED Status: Chronic (6) HTN (hypertension) Code(s): I10 - ESSENTIAL (PRIMARY) HYPERTENSION Status: Chronic Qualifiers: Hypertension type: essential hypertension Qualified Code(s): I10 - Essential (primary) hypertension (7) CVA, old, 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 - APHASIA FOLLOWING CEREBRAL INFARCTION Status: Chronic Comment: , continue supportive measures, speech therapy (8) Dysphagia as late effect of cerebrovascular accident (CVA) Code(s): I69.391 - DYSPHAGIA FOLLOWING CEREBRAL INFARCTION Status: Chronic Comment: Speech therapy monitoring, re-evaluate in am, likely will need puree with nectar thick liquids when taking po (9) Dementia Code(s): F03.90 - UNSPECIFIED DEMENTIA WITHOUT BEHAVIORAL DISTURBANCE Status: Chronic Qualifiers: Dementia type: unspecified type - Plan family will be making decision about going to snf with hospice or peg -: is on dig, atenolo, off cardizem drip -: zosyn for pna, solumedrol iv harriet -: likely has advance dementia -: will dc eliquis for now, is high risk for bleeding and fall risk * . Review of Systems - Medications/Allergies Allergies/Adverse Reactions: Allergies Allergy/AdvReac Type Severity Reaction Status Date / Time iodine Allergy Verified 08/28/17 21:45 metoprolol Allergy Verified 08/28/17 21:45 Hkavjob-Snp-Piv Reductase Allergy Verified 08/28/17 21:45 Inhibitor Sulfa (Sulfonamide Allergy Verified 08/28/17 21:45 Antibiotics) Medications: Current Medications Acetaminophen (Tylenol) 650 mg PO Q4H PRN PRN Reason: Headache/Fever or Pain Acetaminophen (Tylenol) 650 mg NE Q4H PRN PRN Reason: Headache/Fever or Pain Albuterol/Ipratropium (Duoneb) 3 ml NEB [id number] [facility] Last Admin: 09/01/17 06:15 Dose: 3 ml Apixaban (Eliquis) 5 mg PO BID [facility] Last Admin: 09/01/17 09:09 Dose: 5 mg Atenolol (Tenormin) 50 mg PO BID [facility] Last Admin: 09/01/17 09:09 Dose: 50 mg Digoxin (Lanoxin) 0.125 mg PO DAILY [facility] Last Admin: 09/01/17 09:09 Dose: 0.125 mg Hydralazine HCl (Apresoline) 10 mg SLOW IVP Q6H PRN PRN Reason: SBP Greater Than 170 Piperacillin Sod/Tazobactam (Sod 4.5 gm/ Sodium Chloride) 100 mls @ 200 mls/hr IVPB Q8HR [facility] Last Admin: 09/01/17 05:18 Dose: 100 mls Diltiazem HCl 125 mg/Miscellaneous Medication 1 each/ Sodium Chloride 125 mls @ 0 mls/hr SLOW IVP INF [facility]; As Directed PRN Reason: Protocol Last Admin: 08/31/17 01:07 Dose: 125 mls Sodium Chloride (Normal Saline 0.9%) 1,000 mls @ 125 mls/hr IV .Q8H [facility] Last Admin: 09/01/17 05:18 Dose: 1,000 mls Lorazepam (Ativan) 0.5 mg PO TID PRN PRN Reason: Anxiety Lorazepam (Ativan) 0.5 mg SLOW IVP TID PRN PRN Reason: Anxiety/Agitation Last Admin: 09/01/17 01:58 Dose: 0.5 mg Methylprednisolone Sodium Succinate (Solu-Medrol) 40 mg IVP DAILY [facility] Last Admin: 09/01/17 09:12 Dose: 40 mg Sodium Chloride (Flush - Normal Saline) 10 ml IVF Q12HR [facility] Last Admin: 09/01/17 09:12 Dose: 10 ml Sodium Chloride (Flush - Normal Saline) 10 ml IVF PRN PRN PRN Reason: Saline Flush
[2017-09-01] MEDS: Labetalol HCl 100 MG/20 ML VIAL SLOW IVP PRN (15:02)
[2017-09-02] MEDS: Labetalol HCl 100 MG/20 ML VIAL SLOW IVP PRN ×4 (00:18→23:37)
[2017-09-02] MEDS: Sodium Chloride 0.9% 1,000 ML IV SCH ×3 (06:37→19:48)
[2017-09-02] MEDS: Piperacillin/Tazobactam 4.5 GM in Sodium Chloride 0.9% 100 ML IVPB SCH ×3 (06:40→20:39)
--- NOTE | 2017-09-02 08:31 | PQF ---
CLINICAL DOCUMENTATION IMPROVEMENT CLARIFICATION FORM: ICD-10 Updated PLEASE DO AN ADDENDUM TO THE PROGRESS NOTE WITH ANY DOCUMENTATION UPDATES OR ADDITIONS AND CARRY THROUGH TO DC SUMMARY. THANK YOU. DATE: 09/02 ATTN: DR. Akila WHITAKER Please exercise your independent, professional judgment in responding to the clarification form. Clinical indicators are provided on the bottom of this form for your review Please check appropriate box(s) to clarify if the following diagnosis has been ruled in or ruled out: SEVERE SEPSIS [ x ] Ruled in diagnosis [ ] Continue to treat [ x ] Resolved [ ] Ruled out diagnosis [ ] Cannot rule out diagnosis [ ] Other diagnosis [ ] Unable to determine In addition, please specify: Present on Admission (POA): [x ] Yes [ ] No [ ] Unable to determine For continuity of documentation, please document condition throughout progress notes and discharge summary. Thank You. CLINICAL INDICATORS - SIGNS / SYMPTOMS / LABS ER PHYSICIAN DOCUMENTATION 08/28: PT AGITATED, CONFUSED, APPEARS TOXIC PULMONOLOGY H&P 08/29: HX OF PRESENT ILLNESS: ...PT PRESENTS TO THE HOSPITAL BECAUSE HE WAS ALTERED IN HIS NURSING FACILITY. THE PT HAS BEEN ILL FOR A WEEK. ASSESSMENT: 1. ACUTE HYPOXIC RESPIRATORY FAILURE, RESOLVING; 3. POSSIBLE ASPIRATION 2/2 OROPHARYNGEAL DYSPHAGIA; 5. SEVERE SEPSIS PULMONOLOGY PN 08/30: ASSESSMENT: 5. SEVERE SEPSIS; 08/31: 3. COMMUNITY ACQUIRED PNEUMONIA 2/2 ASPIRATION, SUSPECTED; 5. SEVERE SEPSIS; 09/01: 3. COMMUNITY ACQUIRED PNEUMONIA 2/2 ASPIRATION, SUSPECTED; 6. STATIC ENCEPHALOPATHY; 7. SEVERE SEPSIS, RESOLVING RISK FACTORS: ACUTE HYPOXIC RESPIRATORY FAILURE ASPIRATION PNEUMONIA STATIC ENCEPHALOPATHY TREATMENTS: CCU MONITORING IV ANTIBIOTICS (IV ZOSYN 08/28 - PRESENT; ROCEPHIN 08/28) IVF (NS 08/30 - PRESENT) THANK YOU! Giuliana (This form is maintained as a part of the permanent medical record) 2015 [employer]. All Rights Reserved Giuliana Leigh RN, BSN [email or web address] Office: [phone] [facility]ITAL[facility]
--- NOTE | 2017-09-02 10:20 | PDOC.PN ---
- Subjective Encounter Start Date: 09/02/17 Encounter Start Time: 07:45 Subjective: awake, not oriented, is moaning -: not in distress - Objective Resuscitation Status: Resuscitation Status DNR:Do Not Resuscitate MAR Reviewed: Yes Vital Signs & Weight: Vital Signs (12 hours) Temp Pulse Resp BP BP Pulse Ox 09/02/17 07:40 96.6 F L 125 H 22 H 172/108 H 95 09/02/17 07:13 116 H 21 H 09/02/17 05:05 106 H 09/02/17 04:41 95 09/02/17 04:00 98.5 F 106 H 22 H 173/116 H 95 09/02/17 03:17 94 L 09/02/17 00:18 125 H 167/118 H 09/02/17 00:05 120 H 20 95 09/02/17 00:00 97.9 F 122 H 26 H 159/107 H 95 Weight Weight 179 lb Most Recent Monitor Data Heart Rate from ECG 128 NIBP 187/107 NIBP BP-Mean 160 Respiration from ECG 26 SpO2 100 I&O: 09/01/17 09/02/17 09/03/17 06:59 06:59 06:59 Intake Total 3513 3026 Output Total 4805 1000 Balance -1292 2025 Result Diagrams: 08/31/17 03:27 08/31/17 03:27 Phys Exam - Physical Examination HEENT: PERRLA, sclera anicteric Neck: no JVD, supple Respiratory: no wheezing, no rales Cardiovascular: irregular murmur+ Gastrointestinal: soft, no distention, positive bowel sounds Musculoskeletal: no edema, pulses present Neurological: non-focal, moves all 4 limbs Dx/Plan (1) Acute respiratory failure Code(s): J96.00 - ACUTE RESPIRATORY FAILURE, UNSP W HYPOXIA OR HYPERCAPNIA Status: Resolved Qualifiers: Respiratory failure complication: hypoxia Qualified Code(s): J96.01 - Acute respiratory failure with hypoxia (2) Aspiration pneumonia Code(s): J69.0 - PNEUMONITIS DUE TO INHALATION OF FOOD AND VOMIT Status: Acute Qualifiers: Aspiration pneumonia type: due to gastric secretions Laterality: bilateral (3) Atrial fibrillation with RVR Code(s): I48.91 - UNSPECIFIED ATRIAL FIBRILLATION Status: Acute (4) BPH (benign prostatic hyperplasia) Code(s): N40.0 - BENIGN PROSTATIC HYPERPLASIA WITHOUT LOWER URINRY TRACT SYMP Status: Chronic Qualifiers: Lower urinary tract symptom presence: unspecified whether lower urinary tract symptoms present Qualified Code(s): N40.0 - Benign prostatic hyperplasia without lower urinary tract symptoms (5) Dyslipidemia Code(s): E78.5 - HYPERLIPIDEMIA, UNSPECIFIED Status: Chronic (6) HTN (hypertension) Code(s): I10 - ESSENTIAL (PRIMARY) HYPERTENSION Status: Chronic Qualifiers: Hypertension type: essential hypertension Qualified Code(s): I10 - Essential (primary) hypertension (7) CVA, old, 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 - APHASIA FOLLOWING CEREBRAL INFARCTION Status: Chronic Comment: , continue supportive measures, speech therapy (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 Review of Systems - Medications/Allergies Allergies/Adverse Reactions: Allergies Allergy/AdvReac Type Severity Reaction Status Date / Time iodine Allergy Verified 08/28/17 21:45 metoprolol Allergy Verified 08/28/17 21:45 Gosyvxj-Cny-Plv Reductase Allergy Verified 08/28/17 21:45 Inhibitor Sulfa (Sulfonamide Allergy Verified 08/28/17 21:45 Antibiotics) Medications: Current Medications Acetaminophen (Tylenol) 650 mg PO Q4H PRN PRN Reason: Headache/Fever or Pain Acetaminophen (Tylenol) 650 mg [place] Q4H PRN PRN Reason: Headache/Fever or Pain Albuterol/Ipratropium (Duoneb) 3 ml NEB [id number] [facility] Last Admin: 09/02/17 07:13 Dose: 3 ml Atenolol (Tenormin) 50 mg PO BID [facility] Last Admin: 09/01/17 22:00 Dose: 50 mg Digoxin (Lanoxin) 0.125 mg PO DAILY [facility] Last Admin: 09/01/17 09:09 Dose: 0.125 mg Hydralazine HCl (Apresoline) 10 mg SLOW IVP Q6H PRN PRN Reason: SBP Greater Than 170 Piperacillin Sod/Tazobactam (Sod 4.5 gm/ Sodium Chloride) 100 mls @ 200 mls/hr IVPB Q8HR [facility] Last Admin: 09/02/17 06:40 Dose: 100 mls Diltiazem HCl 125 mg/Miscellaneous Medication 1 each/ Sodium Chloride 125 mls @ 0 mls/hr SLOW IVP INF [facility]; As Directed PRN Reason: Protocol Last Admin: 08/31/17 01:07 Dose: 125 mls Sodium Chloride (Normal Saline 0.9%) 1,000 mls @ 125 mls/hr IV .Q8H [facility] Last Admin: 09/02/17 06:37 Dose: 1,000 mls Labetalol HCl (Normodyne) 20 mg SLOW IVP Q2H PRN PRN Reason: SBP>160 Last Admin: 09/02/17 05:05 Dose: 20 mg Lorazepam (Ativan) 0.5 mg PO TID PRN PRN Reason: Anxiety Lorazepam (Ativan) 0.5 mg SLOW IVP TID PRN PRN Reason: Anxiety/Agitation Last Admin: 09/01/17 15:00 Dose: 0.5 mg Methylprednisolone Sodium Succinate (Solu-Medrol) 40 mg IVP DAILY [facility] Last Admin: 09/01/17 09:12 Dose: 40 mg Sodium Chloride (Flush - Normal Saline) 10 ml IVF Q12HR [facility] Last Admin: 09/01/17 22:00 Dose: Not Given Sodium Chloride (Flush - Normal Saline) 10 ml IVF PRN PRN PRN Reason: Saline Flush
[2017-09-02] MEDS: Atenolol 50 MG TAB PO SCH ×4 (10:21→20:39)
[2017-09-02] MEDS: Digoxin 0.125 MG TAB PO SCH ×2 (10:21→10:29)
[2017-09-02] MEDS: hydrALAZINE 20 MG/ML VIAL SLOW IVP PRN (13:22)
[2017-09-02] MEDS: Lorazepam 2 MG/ML VIAL SLOW IVP PRN (13:22)
--- NOTE | 2017-09-02 17:09 | PRG ---
DATE OF SERVICE: 09/02/2017 SERVICE: Pulmonary Medicine. INTERVAL HISTORY: The patient is doing fine from a respiratory and metabolic standpoint. He cannot provide any additional elements of the history. There have been no events overnight. He continues to moan. That being said, he does not appear to be in any distress. PHYSICAL EXAMINATION: VITAL SIGNS: Afebrile. Pulse 115, blood pressure 172/108, respirations 24, saturation 100% on room air. GENERAL: Patient is awake, alert, in no apparent distress. LUNGS: Decent air entry. There is no prolonged expiratory phase. There is no wheezing or crackles . Rhonchi are present throughout. HEART: Tachycardic. Regular. ABDOMEN: Soft, nontender, and nondistended. Bowel sounds positive. MUSCULOSKELETAL: No cyanosis or clubbing. No pitting in the bilateral lower extremities. NEUROLOGIC: Grossly nonfocal. ASSESSMENT: 1. Acute hypoxic respiratory failure, resolved. 2. Chronic obstructive pulmonary disease with acute exacerbation, possible. 3. Community-acquired pneumonia secondary to aspiration. 4. History of cerebrovascular accident, severe. 5. Debility with bedbound status. 6. Septic encephalopathy. 7. Severe sepsis, resolving. 8. Protein calorie malnutrition. 9. Sinus tachycardia. PLAN: Currently, the patient has no further requirements for inpatient Pulmonary or critical care n eed. He is in a bedbound status with advanced cognitive impairment. [facility] We will continue our palliative care discussions. A definitive nu trition will need to be provided if the patient is not a candidate for comfort care only based on arvind urban's request. He is at extraordinarily high risk for recurrent episodes of respiratory failure as sociated with aspiration as he is not able to protect his airway at baseline. If he declines clinic ally, and family wishes to pursue very aggressive measures, intubation and subsequent tracheostomy w ill be provided. I do not think this is in the best interest of the patient; however.
[2017-09-03] MEDS: Piperacillin/Tazobactam 4.5 GM in Sodium Chloride 0.9% 100 ML IVPB SCH ×3 (05:23→21:31)
[2017-09-03] MEDS: Labetalol HCl 100 MG/20 ML VIAL SLOW IVP PRN (05:23)
--- NOTE | 2017-09-03 08:50 | PDOC.PN ---
- Subjective Encounter Start Date: 09/03/17 Encounter Start Time: 08:48 Subjective: confused, no distress - Objective Resuscitation Status: Resuscitation Status DNR:Do Not Resuscitate MAR Reviewed: Yes Vital Signs & Weight: Vital Signs (12 hours) Temp Pulse Resp BP BP Pulse Ox 09/03/17 07:52 99.1 F 106 H 20 141/88 H 97 09/03/17 06:51 109 H 20 99 09/03/17 05:23 121 H 162/105 H 09/03/17 04:00 98.9 F 127 H 18 162/105 H 99 09/03/17 00:32 125 H 18 100 09/02/17 23:38 97.8 F 125 H 20 194/124 H 100 09/02/17 23:37 123 H 194/124 H Weight Weight 174 lb Most Recent Monitor Data Heart Rate from ECG 128 NIBP 187/107 NIBP BP-Mean 160 Respiration from ECG 26 SpO2 100 I&O: 09/02/17 09/03/17 09/04/17 06:59 06:59 06:59 Intake Total 3026 1193 Output Total 1000 400 Balance 2025 793 Result Diagrams: 08/31/17 03:27 08/31/17 03:27 Phys Exam - Physical Examination Constitutional: NAD Neck: no JVD Respiratory: clear to auscultation bilateral Cardiovascular: no significant murmur, irregular Gastrointestinal: soft, positive bowel sounds Musculoskeletal: no edema Dx/Plan (1) Sepsis Code(s): A41.9 - SEPSIS, UNSPECIFIED ORGANISM Status: Acute (2) Aspiration pneumonia Code(s): J69.0 - PNEUMONITIS DUE TO INHALATION OF FOOD AND VOMIT Status: Acute Qualifiers: Aspiration pneumonia type: due to gastric secretions Laterality: bilateral (3) Atrial fibrillation with RVR Code(s): I48.91 - UNSPECIFIED ATRIAL FIBRILLATION Status: Acute (4) BPH (benign prostatic hyperplasia) Code(s): N40.0 - BENIGN PROSTATIC HYPERPLASIA WITHOUT LOWER URINRY TRACT SYMP Status: Chronic Qualifiers: Lower urinary tract symptom presence: unspecified whether lower urinary tract symptoms present Qualified Code(s): N40.0 - Benign prostatic hyperplasia without lower urinary tract symptoms (5) Dementia Code(s): F03.90 - UNSPECIFIED DEMENTIA WITHOUT BEHAVIORAL DISTURBANCE Status: Chronic Qualifiers: Dementia type: unspecified type (6) Dyslipidemia Code(s): E78.5 - HYPERLIPIDEMIA, UNSPECIFIED Status: Chronic (7) HTN (hypertension) Code(s): I10 - ESSENTIAL (PRIMARY) HYPERTENSION Status: Chronic Qualifiers: Hypertension type: essential hypertension Qualified Code(s): I10 - Essential (primary) hypertension (8) Acute respiratory failure Code(s): J96.00 - ACUTE RESPIRATORY FAILURE, UNSP W HYPOXIA OR HYPERCAPNIA Status: Resolved Qualifiers: Respiratory failure complication: hypoxia Qualified Code(s): J96.01 - Acute respiratory failure with hypoxia (9) Atrial flutter Code(s): I48.92 - UNSPECIFIED ATRIAL FLUTTER Status: Chronic Comment: Rate- controlled, continue Digoxin, continue Eliquis (10) CVA, old, 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
[2017-09-03] MEDS: Digoxin 0.125 MG TAB PO SCH (09:21)
[2017-09-03] MEDS: Atenolol 50 MG TAB PO SCH ×2 (09:21→21:33)
--- NOTE | 2017-09-03 15:37 | CON ---
DATE OF CONSULTATION: 09/03/2017 REQUESTING PHYSICIAN: Becky Segovia M.D. REASON FOR CONSULTATION: PEG tube placement. HISTORY OF PRESENT ILLNESS: Addison Graves is an 86-year-old gentleman who was admitted to the hospital 6 days ago on 08/28/2017 with altered mental status and acute respiratory failure. He has a history of possible COPD, but more pertinent left CVA about a year ago with dense right hemipl egia and aphasia since that time. His son tells me that he was actually eating on his own until abo ut a week ago when he had a vomiting episode and then had pneumonia. He has been treated for an asp iration pneumonia. He was briefly on the ventilator and now is on facemask oxygen. He had been on his Eliquis for atrial fibrillation, but that has been held this admission, the patient has been n.p .o. and has been unable to resume oral intake. The patient's family has considered possible hospice evaluation, but in the end has decided against this. For now, they requesting PEG tube placement. To me, the patient's nutritional needs in light of his recent episodes of aspiration and debility. REVIEW OF SYSTEMS: Unable to obtain from the patient due to his aphasia and altered mental status. PAST MEDICAL HISTORY: COPD, left CVA with dense right hemiplegia, aphasia, aspiration pneumonia, hy pertension, hyperlipidemia, atrial fibrillation, coronary artery disease, BPH, colon cancer, status post partial colectomy 20 years ago with no recurrence, cholecystectomy and hernia repair. ALLERGIES: IODINE, METOPROLOL, SULFA, STATINS. MEDICATIONS: DuoNebs, atenolol, digoxin, Ativan p.r.n., Solu-Medrol 40 mg IV daily. FAMILY HISTORY: Noncontributory. SOCIAL HISTORY: No smoking, alcohol, or drug use. The patient lives in residential. His son, Kapil saldaña, is power of personal injury attorney. I spoke with him on the phone today. PHYSICAL EXAMINATION: VITAL SIGNS: Temperature 99.3, pulse 129, blood pressure 176/115, 100% oxygen saturation on room ai r. GENERAL: Elderly, frail 86-year-old man lying in bed comfortably on facemask oxygen in no acute dis tress. SKIN: No jaundice, no rash visible or palpable. EYES: No scleral icterus. ENT: Mucous membranes moist. LYMPH: No submandibular or supraclavicular lymphadenopathy. THYROID: Nontender to palpation. HEART: Irregular tachycardia. LUNGS: Clear to auscultation bilaterally. ABDOMEN: Bowel sounds present, soft, nontender to palpation throughout. The patient has a large mi dline vertical scar above and below the umbilicus. EXTREMITIES: No peripheral edema. VESSELS: Radial pulses 2+ bilaterally. LABORATORY STUDIES: WBC 7.9, hemoglobin 11.5, platelets 202. Sodium 139, potassium 3.9, BUN 18, cr eatinine 0.71. LFTs normal. Blood cultures from admission show no growth to date. ASSESSMENT AND PLAN: 1. Oropharyngeal dysphagia. 2. Aspiration pneumonia. 3. Debility. I had a long discussion on the phone today with the patient's son and power of personal injury attorney, Addison, they are not wanting to pursue hospice care at this time and therefore enteral nutrition is indicated. T he patient's family desires us to proceed with PEG tube placement. We will plan for PEG placement t omorrow. I discussed the potential benefits as well as potential risks to the procedure and he isidro res us to proceed. The patient has been off anticoagulation since admission. Thank you for the consultation. Please call with questions or concerns.
[2017-09-03] MEDS: Metoprolol Tartrate 5 MG/5 ML VIAL IVP PRN ×2 (16:16→22:56)
[2017-09-03] MEDS: Sodium Chloride 0.9% 1,000 ML IV SCH (21:30)
[2017-09-04] MEDS: Labetalol HCl 100 MG/20 ML VIAL SLOW IVP PRN (06:10)
[2017-09-04] MEDS: Piperacillin/Tazobactam 4.5 GM in Sodium Chloride 0.9% 100 ML IVPB SCH ×3 (06:10→21:04)
--- NOTE | 2017-09-04 08:26 | PDOC.PN ---
- Subjective Encounter Start Date: 09/04/17 Encounter Start Time: 08:20 Subjective: demented - Objective Resuscitation Status: Resuscitation Status DNR:Do Not Resuscitate MAR Reviewed: Yes Vital Signs & Weight: Vital Signs (12 hours) Temp Pulse Resp BP BP Pulse Ox 09/04/17 07:34 98.7 F 124 H 20 150/101 H 100 09/04/17 07:22 100 09/04/17 07:20 119 H 20 100 09/04/17 06:10 125 H 166/114 H 09/04/17 04:25 99 09/04/17 04:00 98.1 F 125 H 20 166/115 H 99 09/04/17 01:18 126 H 16 100 09/04/17 01:15 126 H 139/108 H 09/04/17 00:30 98 09/04/17 00:00 97.3 F L 99 20 168/118 H 98 09/03/17 21:33 126 H 149/113 H Weight Admit Weight 174 lb 13.225 oz Weight 175 lb 1.6 oz Most Recent Monitor Data Heart Rate from ECG 128 NIBP 187/107 NIBP BP-Mean 160 Respiration from ECG 26 SpO2 100 I&O: 09/03/17 09/04/17 09/05/17 06:59 06:59 06:59 Intake Total 1193 1069 Output Total 400 Balance 793 1069 Result Diagrams: 08/31/17 03:27 08/31/17 03:27 Phys Exam - Physical Examination Constitutional: NAD Neck: no JVD Respiratory: clear to auscultation bilateral Cardiovascular: RRR, no significant murmur tachy Gastrointestinal: soft, positive bowel sounds Musculoskeletal: no edema, pulses present Dx/Plan (1) Sepsis Code(s): A41.9 - SEPSIS, UNSPECIFIED ORGANISM Status: Acute Qualifiers: Sepsis type: sepsis due to unspecified organism Qualified Code(s): A41.9 - Sepsis, unspecified organism (2) Aspiration pneumonia Code(s): J69.0 - PNEUMONITIS DUE TO INHALATION OF FOOD AND VOMIT Status: Acute Qualifiers: Aspiration pneumonia type: due to gastric secretions Laterality: bilateral (3) Atrial fibrillation with RVR Code(s): I48.91 - UNSPECIFIED ATRIAL FIBRILLATION Status: Acute (4) BPH (benign prostatic hyperplasia) Code(s): N40.0 - BENIGN PROSTATIC HYPERPLASIA WITHOUT LOWER URINRY TRACT SYMP Status: Chronic Qualifiers: Lower urinary tract symptom presence: unspecified whether lower urinary tract symptoms present Qualified Code(s): N40.0 - Benign prostatic hyperplasia without lower urinary tract symptoms (5) Dementia Code(s): F03.90 - UNSPECIFIED DEMENTIA WITHOUT BEHAVIORAL DISTURBANCE Status: Chronic Qualifiers: Dementia type: unspecified type (6) Dyslipidemia Code(s): E78.5 - HYPERLIPIDEMIA, UNSPECIFIED Status: Chronic (7) HTN (hypertension) Code(s): I10 - ESSENTIAL (PRIMARY) HYPERTENSION Status: Chronic Qualifiers: Hypertension type: essential hypertension Qualified Code(s): I10 - Essential (primary) hypertension (8) Acute respiratory failure Code(s): J96.00 - ACUTE RESPIRATORY FAILURE, UNSP W HYPOXIA OR HYPERCAPNIA Status: Resolved Qualifiers: Respiratory failure complication: hypoxia Qualified Code(s): J96.01 - Acute respiratory failure with hypoxia (9) Atrial flutter Code(s): I48.92 - UNSPECIFIED ATRIAL FLUTTER Status: Chronic Comment: Rate- controlled, continue Digoxin, continue Eliquis (10) CVA, old, 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 - APHASIA FOLLOWING CEREBRAL INFARCTION Status: Chronic Comment: , continue supportive measures, speech therapy - Plan PEG planned today -: in atrial flutter , rate 150, consult cardiology -: cbc, cmp * .
[2017-09-04 08:52] LABS: Hematocrit 45.9 % (42.0-52.0); Mean Platelet Volume 7.8 fL (7.4-10.4); White Blood Cell (WBC) Count 8.2 thou/uL (4.8-10.8)
[2017-09-04] MEDS: Digoxin 0.125 MG TAB PO SCH (08:55)
[2017-09-04] MEDS: Atenolol 50 MG TAB PO SCH (08:55)
[2017-09-04 12:47] LABS: ALT (SGPT) 16 U/L (8-55); AST (SGOT) 26 U/L (5-34); Alkaline Phosphatase 51 U/L (40-150); Anion Gap 15 mmol/L (10-20); BUN (Urea Nitrogen) 14 mg/dL (8.4-25.7); Calc. Creatinine Clearance 83 mL/min (70-130); Calcium 8.4 mg/dL (7.8-10.44); Carbon Dioxide 24 mmol/L (23-31); Chloride 105 mmol/L (98-107); Estimated GFR-MDRD Greater than 90; Protein, Total 6.3 g/dL (5.8-8.1)
[2017-09-04] MEDS: Sodium Chloride 0.9% 1,000 ML IV SCH (13:59)
[2017-09-04 14:35] LABS: Band 1 % (5-11)
[2017-09-04 14:40] LABS: Neutrophil 84 % (42-75)
[2017-09-04] MEDS ORDERED: Propofol 200 MG/20 ML VIAL ONE (15:49)
--- NOTE | 2017-09-04 19:27 | CON ---
DATE OF CONSULTATION: 09/04/2017 REASON FOR CONSULTATION: Atrial fibrillation. PRIMARY CARE PROVIDER: Stacey Bill M.D. HISTORY OF PRESENT ILLNESS: Mr. Graves is an unfortunate 86-year-old gentleman who has not been see n or evaluated by Cardiology in the past. He recently presented with mental status changes and quest ionable aspiration pneumonia. I was consulted for atrial fibrillation. It appears he has coarse atr ial fibrillation versus atrial flutter with variable block. Unfortunately, Mr. Peres cannot give a reasonable history. His family is not available. He has no previous history of underlying atrial fibrillation. His first EKG dated 08/28/2017, did horne ggest fibrillation. He is currently on atenolol and additionally with digoxin. PAST MEDICAL HISTORY: CVA, hyperlipidemia, atrial fibrillation, CAD, BPH, colon cancer, partial helga ctomy, cholecystectomy, hernia repair, COPD. ALLERGIES: IODINE. MEDICATIONS: Atenolol, digoxin, Solu-Medrol. SOCIAL HISTORY: No current tobacco or alcohol use. REVIEW OF SYSTEMS: Unobtainable. PHYSICAL EXAMINATION: VITAL SIGNS: Blood pressure 125/78, pulse 121, temperature 97.5. GENERAL: Does not awaken to a voice. NEUROLOGIC: The patient is alert and oriented times 3 with no focal neurologic deficits. HEENT: Sclerae without icterus. Mouth has moist mucous membranes with normal pallor. NECK: No JVD. Carotid upstroke brisk. No bruits bilaterally. LUNGS: Clear to auscultation with unlabored respirations. BACK: No scoliosis or kyphosis. CARDIAC: Irregularly irregular. ABDOMEN: Soft, nontender, nondistended. No peritoneal signs present. No hepatosplenomegaly. No ab normal striae. EXTREMITIES: 2+ femoral and 2+ dorsalis pedis pulses. No cyanosis, clubbing, or edema. SKIN: No gross abnormalities. PERTINENT LABORATORY DATA: Hemoglobin 14.9, creatinine 0.72. IMPRESSION: 1. Atrial fibrillation with rapid ventricular response. 2. Mental status changes. 3. ? dementia. 4. Aspiration. RECOMMENDATIONS: 1. Add IV Cardizem. 2. Discontinue atenolol. 3. Add p.o. Cardizem and PEG tube placed. 4. Add subcu Lovenox until decision on anticoagulation was made by the family and after PEG tube is placed. At this point, I given his comorbidities would recommend a more conservative approach.
[2017-09-04] MEDS: Diltiazem 125 MG in Sodium Chloride 0.9% 100 ML IVPB SCH (21:34)
[2017-09-04] MEDS: Lorazepam 2 MG/ML VIAL SLOW IVP PRN (22:41)
[2017-09-05] MEDS: Piperacillin/Tazobactam 4.5 GM in Sodium Chloride 0.9% 100 ML IVPB SCH (05:55)
--- NOTE | 2017-09-05 08:48 | PDOC.PN ---
- Subjective Encounter Start Date: 09/05/17 Encounter Start Time: 08:44 Subjective: demented - Objective Resuscitation Status: Resuscitation Status DNR:Do Not Resuscitate MAR Reviewed: Yes Vital Signs & Weight: Vital Signs (12 hours) Temp Pulse Resp BP Pulse Ox 09/05/17 08:00 98.5 F 60 17 98 09/05/17 07:15 98.5 F 60 17 126/70 98 09/05/17 07:04 95 09/05/17 07:02 102 H 20 95 09/05/17 04:42 95 09/05/17 04:10 98.1 F 122 H 18 117/69 94 L 09/05/17 00:20 95 09/05/17 00:09 110 H 18 94 L 09/05/17 00:00 97.6 F 95 Weight Admit Weight 174 lb 13.225 oz Weight 174 lb Most Recent Monitor Data Heart Rate from ECG 128 NIBP 187/107 NIBP BP-Mean 160 Respiration from ECG 26 SpO2 100 I&O: 09/04/17 09/05/17 09/06/17 06:59 06:59 06:59 Intake Total 1069 2089.4 Balance 1069 2089.4 Result Diagrams: 09/04/17 08:44 09/04/17 08:44 Phys Exam - Physical Examination Constitutional: NAD Neck: no JVD Respiratory: clear to auscultation bilateral Cardiovascular: irregular Gastrointestinal: soft, non-tender, positive bowel sounds PEG Musculoskeletal: no edema Dx/Plan (1) Sepsis Code(s): A41.9 - SEPSIS, UNSPECIFIED ORGANISM Status: Acute Qualifiers: Sepsis type: sepsis due to unspecified organism Qualified Code(s): A41.9 - Sepsis, unspecified organism (2) Aspiration pneumonia Code(s): J69.0 - PNEUMONITIS DUE TO INHALATION OF FOOD AND VOMIT Status: Acute Qualifiers: Aspiration pneumonia type: due to gastric secretions Laterality: bilateral (3) Atrial fibrillation with RVR Code(s): I48.91 - UNSPECIFIED ATRIAL FIBRILLATION Status: Acute (4) BPH (benign prostatic hyperplasia) Code(s): N40.0 - BENIGN PROSTATIC HYPERPLASIA WITHOUT LOWER URINRY TRACT SYMP Status: Chronic Qualifiers: Lower urinary tract symptom presence: unspecified whether lower urinary tract symptoms present Qualified Code(s): N40.0 - Benign prostatic hyperplasia without lower urinary tract symptoms (5) Dementia Code(s): F03.90 - UNSPECIFIED DEMENTIA WITHOUT BEHAVIORAL DISTURBANCE Status: Chronic Qualifiers: Dementia type: unspecified type (6) Dyslipidemia Code(s): E78.5 - HYPERLIPIDEMIA, UNSPECIFIED Status: Chronic (7) HTN (hypertension) Code(s): I10 - ESSENTIAL (PRIMARY) HYPERTENSION Status: Chronic Qualifiers: Hypertension type: essential hypertension Qualified Code(s): I10 - Essential (primary) hypertension (8) Acute respiratory failure Code(s): J96.00 - ACUTE RESPIRATORY FAILURE, UNSP W HYPOXIA OR HYPERCAPNIA Status: Resolved Qualifiers: Respiratory failure complication: hypoxia Qualified Code(s): J96.01 - Acute respiratory failure with hypoxia (9) Atrial flutter Code(s): I48.92 - UNSPECIFIED ATRIAL FLUTTER Status: Resolved Comment: Rate- controlled, continue Digoxin, continue Eliquis (10) CVA, old, 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 - APHASIA FOLLOWING CEREBRAL INFARCTION Status: Chronic Comment: , continue supportive measures, speech therapy - Plan post PEG, nutrition, meds per PEG -: cardizem 30 mg pt q8h -: risk of falls , etc- asa, 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
[2017-09-05] MEDS: Digoxin 0.125 MG TAB PO SCH (10:28)
[2017-09-05] MEDS: Cefdinir 300 MG CAP PER TUBE SCH (10:31)
[2017-09-05] MEDS: Aspirin 325 MG TAB PER TUBE SCH (10:32)
--- NOTE | 2017-09-05 13:32 | PRG ---
DATE OF SERVICE: 09/05/2017 Mr. Graves is unchanged. He recently underwent a PEG tube placement. Heart rate appears to be bett er controlled. PHYSICAL EXAMINATION: VITAL SIGNS: Blood pressure 130/97, pulse 60 to 120, respirations 20. LUNGS: Lungs are clear to auscultation. HEART: Irregular, irregular. ABDOMEN: Soft, nontender, nondistended. EXTREMITIES: No edema. IMPRESSION: Atrial fibrillation. RECOMMENDATIONS: Will add p.o. Cardizem to IV Cardizem. I called Gee Graves, his son, to discuss treatment options including anticoagulation therapy. I did leave a message on his cell phone. I wo uld like to make sure the family understands the risks and benefits of anticoagulation therapy prior to proceeding. Otherwise I have no further recommendations.
[2017-09-05] MEDS: Sodium Chloride 0.9% 1,000 ML IV SCH ×2 (14:20→20:30)
[2017-09-05] MEDS: Diltiazem 125 MG in Sodium Chloride 0.9% 100 ML IVPB SCH (20:30)
[2017-09-06] MEDS: Lorazepam 2 MG/ML VIAL SLOW IVP PRN (06:55)
--- NOTE | 2017-09-06 08:06 | PDOC.PN ---
- Subjective Encounter Start Date: 09/06/17 Encounter Start Time: 08:02 Subjective: demented - Objective Resuscitation Status: Resuscitation Status DNR:Do Not Resuscitate MAR Reviewed: Yes Vital Signs & Weight: Vital Signs (12 hours) Temp Pulse Resp BP Pulse Ox 09/06/17 04:00 97.1 F L 82 20 136/74 92 L 09/06/17 00:11 125 H 16 Weight Admit Weight 174 lb 13.225 oz Weight 172 lb 9.6 oz Most Recent Monitor Data Heart Rate from ECG 128 NIBP 187/107 NIBP BP-Mean 160 Respiration from ECG 26 SpO2 100 I&O: 09/05/17 09/06/17 09/07/17 06:59 06:59 06:59 Intake Total 2089.4 4126 Balance 2089.4 4126 Result Diagrams: 09/04/17 08:44 09/04/17 08:44 Phys Exam - Physical Examination Constitutional: NAD Neck: no JVD Cardiovascular: irregular Gastrointestinal: soft, non-tender, positive bowel sounds PEG Musculoskeletal: no edema Dx/Plan (1) Sepsis Code(s): A41.9 - SEPSIS, UNSPECIFIED ORGANISM Status: Acute Qualifiers: Sepsis type: sepsis due to unspecified organism Qualified Code(s): A41.9 - Sepsis, unspecified organism (2) Aspiration pneumonia Code(s): J69.0 - PNEUMONITIS DUE TO INHALATION OF FOOD AND VOMIT Status: Acute Qualifiers: Aspiration pneumonia type: due to gastric secretions Laterality: bilateral (3) Atrial fibrillation with RVR Code(s): I48.91 - UNSPECIFIED ATRIAL FIBRILLATION Status: Acute (4) BPH (benign prostatic hyperplasia) Code(s): N40.0 - BENIGN PROSTATIC HYPERPLASIA WITHOUT LOWER URINRY TRACT SYMP Status: Chronic Qualifiers: Lower urinary tract symptom presence: unspecified whether lower urinary tract symptoms present Qualified Code(s): N40.0 - Benign prostatic hyperplasia without lower urinary tract symptoms (5) Dementia Code(s): F03.90 - UNSPECIFIED DEMENTIA WITHOUT BEHAVIORAL DISTURBANCE Status: Chronic Qualifiers: Dementia type: unspecified type (6) Dyslipidemia Code(s): E78.5 - HYPERLIPIDEMIA, UNSPECIFIED Status: Chronic (7) HTN (hypertension) Code(s): I10 - ESSENTIAL (PRIMARY) HYPERTENSION Status: Chronic Qualifiers: Hypertension type: essential hypertension Qualified Code(s): I10 - Essential (primary) hypertension (8) Acute respiratory failure Code(s): J96.00 - ACUTE RESPIRATORY FAILURE, UNSP W HYPOXIA OR HYPERCAPNIA Status: Resolved Qualifiers: Respiratory failure complication: hypoxia Qualified Code(s): J96.01 - Acute respiratory failure with hypoxia (9) CVA, old, 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 - APHASIA FOLLOWING CEREBRAL INFARCTION Status: Chronic Comment: , continue supportive measures, speech therapy - Plan transition to po pradnisone, dc iv . cont tube feedings, po antibx -: transitioning to po cardizem, will probably need higher dose * .
[2017-09-06] MEDS: Digoxin 0.125 MG TAB PO SCH (09:03)
[2017-09-06] MEDS: Cefdinir 300 MG CAP PER TUBE SCH (09:03)
[2017-09-06] MEDS: Aspirin 325 MG TAB PER TUBE SCH (09:03)
--- NOTE | 2017-09-06 12:55 | PDOC.CTH ---
<Leonela Blanca - Last Filed: 09/06/17 12:53> Cardiology Progress Note - Subjective The pt seen and examined. No overnight events. Unable to assess his ROS due to aphasia. - Objective Vital Signs Temp Pulse Resp BP Pulse Ox 09/06/17 11:40 97.5 F L 64 14 133/76 94 L 09/06/17 09:03 92 09/06/17 08:36 96 09/06/17 08:33 63 16 09/06/17 08:00 98.6 F 123 H 16 134/82 96 09/06/17 04:00 97.1 F L 82 20 136/74 92 L Admit Weight 174 lb 13.225 oz Weight 172 lb 9.6 oz 09/05/17 09/06/17 09/07/17 06:59 06:59 06:59 Intake Total 2089.4 4126 Balance 2089.4 4126 - Physical Examination General/Neuro: other: (Unknown) Neck: no JVD present Lungs: CTA (diminished at bases) Heart: other: (irregular) Abdomen: soft Extremities: other: (No edemas) - Telemetry Telemetry Rhythm: Aflutter - Labs Result Diagrams: 09/04/17 08:44 09/04/17 08:44 Troponin/CKMB CK-MB (CK-2) 4.0 ng/mL (0-6.6) 08/28/17 16:55 Troponin I 0.015 ng/mL (< 0.028) 08/28/17 16:55 - Assessment/Plan 1. Afib with RVR - Rate well controlled with Diltiazem 30mg ACHS, Digoxin 0.125mg, ASA 325mg daily; cont. monitor on tele. We might change his ASA to Eliquis 5mg BID; 2. Aspiration PNA - on IV antibiotic; managed by PCP 3. HTN - stable with current medication; cont. monitor 4. CVA with aphasia 5. Dementia - MAR reviewed Review of Systems - Review of Systems Constitutional: reports: see HPI EENTM: reports: see HPI Respiratory: reports: see HPI Cardiac (ROS): reports: see HPI ABD/GI: reports: see HPI : reports: see HPI <Art Hinson - Last Filed: 09/06/17 14:47> Cardiology Progress Note - Objective Vital Signs Temp Pulse Pulse Pulse Resp BP BP 09/06/17 13:11 97 16 09/06/17 11:40 97.5 F L 64 14 09/06/17 11:07 128 H 102 H 133/76 142/70 H 09/06/17 09:03 92 09/06/17 08:36 09/06/17 08:33 63 16 09/06/17 08:00 98.6 F 123 H 16 09/06/17 04:00 97.1 F L 82 20 BP Pulse Ox 09/06/17 13:11 09/06/17 11:40 133/76 94 L 09/06/17 11:07 09/06/17 09:03 09/06/17 08:36 96 09/06/17 08:33 09/06/17 08:00 134/82 96 09/06/17 04:00 136/74 92 L Admit Weight 174 lb 13.225 oz Weight 172 lb 9.6 oz 09/05/17 09/06/17 09/07/17 06:59 06:59 06:59 Intake Total 2089.4 4126 480 Balance 2089.4 4126 480 - Labs Result Diagrams: 09/04/17 08:44 09/04/17 08:44 Troponin/CKMB CK-MB (CK-2) 4.0 ng/mL (0-6.6) 08/28/17 16:55 Troponin I 0.015 ng/mL (< 0.028) 08/28/17 16:55 - Assessment/Plan Pt. seen and eval. by me. I agree with the A/P by the EXPENSE ANALYST. Pt. does not offer up complaints but can not express himself with the aphasia. He is a DNR status.
[2017-09-06] MEDS: Sodium Chloride 0.9% 1,000 ML IV SCH (16:43)
[2017-09-07 04:17] LABS: Anion Gap 12 mmol/L (10-20); BUN (Urea Nitrogen) 17 mg/dL (8.4-25.7); Calc. Creatinine Clearance 95 mL/min (70-130); Calcium 8.4 mg/dL (7.8-10.44); Carbon Dioxide 27 mmol/L (23-31); Chloride 105 mmol/L (98-107); Estimated GFR-MDRD Greater than 90; Phosphorus 2.2 mg/dL (2.3-4.7)
[2017-09-07] MEDS: Lorazepam 2 MG/ML VIAL SLOW IVP PRN (06:31)
[2017-09-07] MEDS: Aspirin 325 MG TAB PER TUBE SCH (08:49)
[2017-09-07] MEDS: predniSONE 50 MG TAB PER TUBE SCH (08:49)
[2017-09-07] MEDS: Cefdinir 300 MG CAP PER TUBE SCH (08:50)
[2017-09-07] MEDS: Digoxin 0.125 MG TAB PO SCH (08:50)
--- NOTE | 2017-09-07 09:47 | PRG ---
DATE OF SERVICE: 08/28/2017 HISTORY: Mr. Graves is sleeping well in the room. He offers no complaints. He seems somewhat conf used. He does not report chest pain or shortness of breath. PHYSICAL EXAMINATION: VITAL SIGNS: His blood pressure is high 169/106, pulse is 130 and it is regular. LUNGS: Clear. CARDIAC: Irregularly irregular. ABDOMEN: Soft, nontender. EXTREMITIES: There is mild edema. ASSESSMENT: 1. Atrial fibrillation with a rapid ventricular response. 2. Hypertension. PLAN: 1. Increase diltiazem. 2. Consideration at least for low dose anticoagulation until decisions made concerning nursing home anti coagulation.
[2017-09-07] MEDS ORDERED: Digoxin 0.5 MG/2 ML AMP SLOW IVP SCH (10:30)
[2017-09-07] MEDS: Enoxaparin Sodium 30 MG/0.3 ML SYRINGE SC SCH (10:38)
--- NOTE | 2017-09-07 14:17 | PDOC.PN ---
- Subjective Encounter Start Date: 09/07/17 Encounter Start Time: 14:15 Subjective: incomprehensible speech.awake but doesnot follow any commands -: no overnight event noted inn chart - Objective Resuscitation Status: Resuscitation Status DNR:Do Not Resuscitate MAR Reviewed: Yes Vital Signs & Weight: Vital Signs (12 hours) Temp Pulse Resp BP Pulse Ox 09/07/17 13:13 104 H 16 09/07/17 11:57 97.6 F 131 H 20 157/105 H 98 09/07/17 10:37 132 H 09/07/17 08:50 130 H 09/07/17 08:40 98.5 F 130 H 18 100 09/07/17 08:36 98.5 F 130 H 18 169/106 H 100 09/07/17 06:47 96 09/07/17 06:44 122 H 16 09/07/17 04:00 97.9 F 126 H 20 155/98 H 97 Weight Admit Weight 174 lb 13.225 oz Weight 172 lb Most Recent Monitor Data Heart Rate from ECG 128 NIBP 187/107 NIBP BP-Mean 160 Respiration from ECG 26 SpO2 100 I&O: 09/06/17 09/07/17 09/08/17 06:59 06:59 06:59 Intake Total 4126 1930 Balance 4126 1930 Result Diagrams: 09/04/17 08:44 09/07/17 03:19 Additional Labs: Microbiology 08/28/17 17:47 Venous blood - Left Leg Blood Culture - Final NO GROWTH IN 5 DAYS 08/28/17 17:45 Venous blood - Left Hand Blood Culture - Final NO GROWTH IN 5 DAYS Laboratory Tests 09/07/17 03:19 Phosphorus 2.2 L Magnesium 2.0 Radiology Reviewed by me: Yes Phys Exam - Physical Examination Constitutional: NAD awake and loud garbled speech HEENT: PERRLA, moist MMs, sclera anicteric, oral pharynx no lesions Neck: no nodes, no JVD, supple, full ROM Respiratory: no wheezing, no rales, no rhonchi Cardiovascular: no significant murmur, irregular Gastrointestinal: soft, non-tender, no distention, positive bowel sounds Musculoskeletal: no edema, pulses present not moving right side Skin: no rash Dx/Plan (1) Aspiration pneumonia Code(s): J69.0 - PNEUMONITIS DUE TO INHALATION OF FOOD AND VOMIT Status: Acute Qualifiers: Aspiration pneumonia type: due to gastric secretions Laterality: bilateral (2) Atrial fibrillation with RVR Code(s): I48.91 - UNSPECIFIED ATRIAL FIBRILLATION Status: Acute (3) Sepsis Code(s): A41.9 - SEPSIS, UNSPECIFIED ORGANISM Status: Acute Qualifiers: Sepsis type: sepsis due to unspecified organism Qualified Code(s): A41.9 - Sepsis, unspecified organism (4) BPH (benign prostatic hyperplasia) Code(s): N40.0 - BENIGN PROSTATIC HYPERPLASIA WITHOUT LOWER URINRY TRACT SYMP Status: Chronic Qualifiers: Lower urinary tract symptom presence: unspecified whether lower urinary tract symptoms present Qualified Code(s): N40.0 - Benign prostatic hyperplasia without lower urinary tract symptoms (5) Dementia Code(s): F03.90 - UNSPECIFIED DEMENTIA WITHOUT BEHAVIORAL DISTURBANCE Status: Chronic Qualifiers: Dementia type: unspecified type (6) Dyslipidemia Code(s): E78.5 - HYPERLIPIDEMIA, UNSPECIFIED Status: Chronic (7) HTN (hypertension) Code(s): I10 - ESSENTIAL (PRIMARY) HYPERTENSION Status: Chronic Qualifiers: Hypertension type: essential hypertension Qualified Code(s): I10 - Essential (primary) hypertension (8) Acute respiratory failure Code(s): J96.00 - ACUTE RESPIRATORY FAILURE, UNSP W HYPOXIA OR HYPERCAPNIA Status: Resolved Qualifiers: Respiratory failure complication: hypoxia Qualified Code(s): J96.01 - Acute respiratory failure with hypoxia (9) CVA, old, 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 weaned off of IV meds .stable clinically. -: HR still high.will give 1 dose IV Digoxin,increase PO & check level. -: Cont cardiazem per cardiology-dose increased today as well. -: on ASA only for stroke prophylaxis-defer to cardiology for AC decision. -: PEG in place. cont TF. monitor lytes. * Phos lower limit of NL. recheck in am and replace as needed * Placement .. Review of Systems - Review of Systems Other: can not be obtained due to dementia and aphasia - Medications/Allergies Allergies/Adverse Reactions: Allergies Allergy/AdvReac Type Severity Reaction Status Date / Time iodine Allergy Verified 08/28/17 21:45 metoprolol Allergy Verified 08/28/17 21:45 Fupvqim-Gex-Ynh Reductase Allergy Verified 08/28/17 21:45 Inhibitor Sulfa (Sulfonamide Allergy Verified 08/28/17 21:45 Antibiotics) Medications: Current Medications Acetaminophen (Tylenol) 650 mg PO Q4H PRN PRN Reason: Headache/Fever or Pain Acetaminophen (Tylenol) 650 mg VA Q4H PRN PRN Reason: Headache/Fever or Pain Albuterol/Ipratropium (Duoneb) 3 ml NEB [id number] [facility] Last Admin: 09/07/17 13:13 Dose: 3 ml Aspirin (Aspirin) 325 mg PER TUBE DAILY [facility] Last Admin: 09/07/17 08:49 Dose: 325 mg Cefdinir (Omnicef) 600 mg PER TUBE DAILY [facility] Last Admin: 09/07/17 08:50 Dose: 600 mg Digoxin (Lanoxin) 0.25 mg PO DAILY [facility] Diltiazem HCl (Cardizem) 60 mg PO ACHS [facility] Last Admin: 09/07/17 11:59 Dose: 60 mg Enoxaparin Sodium (Lovenox) 30 mg SC 0900 [facility] Last Admin: 09/07/17 10:38 Dose: 30 mg Hydralazine HCl (Apresoline) 10 mg SLOW IVP Q6H PRN PRN Reason: SBP Greater Than 170 Last Admin: 09/02/17 13:22 Dose: 10 mg Sodium Chloride (Normal Saline 0.9%) 1,000 mls @ 40 mls/hr IV .Q24H [facility] Last Admin: 09/06/17 16:43 Dose: Not Given Labetalol HCl (Normodyne) 20 mg SLOW IVP Q2H PRN PRN Reason: SBP>160 Last Admin: 09/04/17 06:10 Dose: 20 mg Lorazepam (Ativan) 0.5 mg PO TID PRN PRN Reason: Anxiety Lorazepam (Ativan) 0.5 mg SLOW IVP TID PRN PRN Reason: Anxiety/Agitation Last Admin: 09/07/17 06:31 Dose: 0.5 mg Prednisone (Prednisone) 50 mg PER TUBE [facility] Last Admin: 09/07/17 08:49 Dose: 50 mg Sodium Chloride (Flush - Normal Saline) 10 ml IVF Q12HR [facility] Last Admin: 09/07/17 08:50 Dose: 10 ml Sodium Chloride (Flush - Normal Saline) 10 ml IVF PRN PRN PRN Reason: Saline Flush Last Admin: 09/04/17 22:42 Dose: 10 ml
[2017-09-07] MEDS: Sodium Chloride 0.9% 1,000 ML IV SCH (17:25)
[2017-09-08 05:40] LABS: Anion Gap 9 mmol/L (10-20); BUN (Urea Nitrogen) 16 mg/dL (8.4-25.7); Calc. Creatinine Clearance 96 mL/min (70-130); Calcium 8.5 mg/dL (7.8-10.44); Carbon Dioxide 29 mmol/L (23-31); Chloride 104 mmol/L (98-107); Estimated GFR-MDRD Greater than 90; Magnesium 2.1 mg/dL (1.6-2.6); Phosphorus 2.6 mg/dL (2.3-4.7)
[2017-09-08] MEDS: Aspirin 325 MG TAB PER TUBE SCH (07:53)
[2017-09-08] MEDS: Cefdinir 300 MG CAP PER TUBE SCH (07:53)
[2017-09-08] MEDS: predniSONE 50 MG TAB PER TUBE SCH (07:53)
[2017-09-08] MEDS: Enoxaparin Sodium 30 MG/0.3 ML SYRINGE SC SCH (07:54)
[2017-09-08] MEDS: Lorazepam 2 MG/ML VIAL SLOW IVP PRN (07:54)
[2017-09-08] MEDS ORDERED: Digoxin 0.25 MG TAB PO SCH (09:00)
--- NOTE | 2017-09-08 10:02 | PRG ---
DATE OF SERVICE: 09/08/2017 HISTORY: Mr. Graves remains confused. He is disoriented. PHYSICAL EXAMINATION: VITAL SIGNS: Blood pressure 150/90, earlier was 126/59, pulse is much better in the 60s. LUNGS: Clear. CARDIAC: Irregular. ASSESSMENT: Atrial arrhythmias, rate better controlled. PLAN: 1. He is on diltiazem at a higher dose. 2. Restart at a full dose enoxaparin. 3. Dr. Vo to resume care in the morning.
--- NOTE | 2017-09-08 11:58 | PDOC.PN ---
- Subjective Encounter Start Date: 09/08/17 Encounter Start Time: 11:57 Subjective: non communicative - Objective Resuscitation Status: Resuscitation Status DNR:Do Not Resuscitate MAR Reviewed: Yes Vital Signs & Weight: Vital Signs (12 hours) Temp Pulse Resp BP Pulse Ox 09/08/17 08:27 97.8 F 61 20 151/95 H 100 09/08/17 08:08 97.8 F 61 20 09/08/17 07:29 97 09/08/17 07:25 64 16 09/08/17 04:00 97.8 F 107 H 20 126/69 98 09/08/17 00:00 98.0 F 66 20 126/59 L 100 Weight Admit Weight 174 lb 13.225 oz Weight 174 lb Most Recent Monitor Data Heart Rate from ECG 128 NIBP 187/107 NIBP BP-Mean 160 Respiration from ECG 26 SpO2 100 I&O: 09/07/17 09/08/17 09/09/17 06:59 06:59 06:59 Intake Total 1929 1995.5 Balance 1929 1995. Result Diagrams: 09/04/17 08:44 09/08/17 05:14 Phys Exam - Physical Examination NAD HEENT: PERRLA, moist MMs, sclera anicteric Neck: supple COARSE Cardiovascular: irregular Gastrointestinal: soft, non-tender Musculoskeletal: no edema Neurological: non-focal, moves all 4 limbs Deviation from normal: OBTUNDED Dx/Plan (1) Aspiration pneumonia Code(s): J69.0 - PNEUMONITIS DUE TO INHALATION OF FOOD AND VOMIT Status: Acute Qualifiers: Aspiration pneumonia type: due to gastric secretions Laterality: bilateral (2) Atrial fibrillation with RVR Code(s): I48.91 - UNSPECIFIED ATRIAL FIBRILLATION Status: Acute (3) H/O malignant neoplasm of colon Code(s): Z85.038 - PERSONAL HISTORY OF MALIGNANT NEOPLASM OF LARGE INTESTINE Status: Acute (4) Sepsis Code(s): A41.9 - SEPSIS, UNSPECIFIED ORGANISM Status: Acute Qualifiers: Sepsis type: sepsis due to unspecified organism Qualified Code(s): A41.9 - Sepsis, unspecified organism (5) BPH (benign prostatic hyperplasia) Code(s): N40.0 - BENIGN PROSTATIC HYPERPLASIA WITHOUT LOWER URINRY TRACT SYMP Status: Chronic Qualifiers: Lower urinary tract symptom presence: unspecified whether lower urinary tract symptoms present Qualified Code(s): N40.0 - Benign prostatic hyperplasia without lower urinary tract symptoms (6) Dementia Code(s): F03.90 - UNSPECIFIED DEMENTIA WITHOUT BEHAVIORAL DISTURBANCE Status: Chronic Qualifiers: Dementia type: unspecified type (7) Dyslipidemia Code(s): E78.5 - HYPERLIPIDEMIA, UNSPECIFIED Status: Chronic (8) HTN (hypertension) Code(s): I10 - ESSENTIAL (PRIMARY) HYPERTENSION Status: Chronic Qualifiers: Hypertension type: essential hypertension Qualified Code(s): I10 - Essential (primary) hypertension (9) Atrial flutter Code(s): I48.92 - UNSPECIFIED ATRIAL FLUTTER Status: Resolved Comment: Rate- controlled, continue Digoxin, continue Eliquis (10) Encephalopathy acute Code(s): G93.40 - ENCEPHALOPATHY, UNSPECIFIED Status: Resolved Comment: Likely secondary to dehydrationor UTI , continue IVF's and monitor clinically, overall improvement - Plan cont current plan of care, respiratory therapy TO SNF THIS WEEK * .
[2017-09-08] MEDS: Milk Of Magnesia 30 ML UDCUP PER TUBE SCH ×3 (14:42→21:44)
[2017-09-08] MEDS: Sodium Chloride 0.9% 1,000 ML IV SCH (14:43)
[2017-09-09] MEDS: Milk Of Magnesia 30 ML UDCUP PER TUBE SCH ×6 (01:40→21:23)
[2017-09-09] MEDS: Lorazepam 2 MG/ML VIAL SLOW IVP PRN ×2 (03:25→09:34)
[2017-09-09 05:31] LABS: #Eosinphils 0.1 thou/uL (0.0-0.7); #Lymphocytes 0.6 thou/uL (1.20-3.40); #Monocytes 0.8 thou/uL (0.11-0.59); %Basophils 0.5 % (0.0-1.0); %Eosinophils 0.7 % (0.0-10.0); %Lymphocytes 6.8 % (21.0-51.0); %Monocytes 9.3 % (0.0-10.0); Hematocrit 47.5 % (42.0-52.0); Mean Platelet Volume 8.3 fL (7.4-10.4); White Blood Cell (WBC) Count 8.5 thou/uL (4.8-10.8)
[2017-09-09 05:47] LABS: Anion Gap 9 mmol/L (10-20); BUN (Urea Nitrogen) 15 mg/dL (8.4-25.7); Calc. Creatinine Clearance 99 mL/min (70-130); Calcium 8.8 mg/dL (7.8-10.44); Carbon Dioxide 31 mmol/L (23-31); Chloride 103 mmol/L (98-107); Estimated GFR-MDRD Greater than 90
[2017-09-09] MEDS: Sodium Chloride 0.9% 1,000 ML IV SCH (09:37)
[2017-09-09] MEDS: predniSONE 50 MG TAB PER TUBE SCH (10:21)
[2017-09-09] MEDS: Aspirin 325 MG TAB PER TUBE SCH (10:21)
[2017-09-09] MEDS: Cefdinir 300 MG CAP PER TUBE SCH (10:21)
[2017-09-09] MEDS: Enoxaparin Sodium 30 MG/0.3 ML SYRINGE SC SCH (10:22)
--- NOTE | 2017-09-09 11:36 | PDOC.PN ---
- Subjective Encounter Start Date: 09/09/17 Encounter Start Time: 11:50 -: non-verbal Subjective: Patient with less agitation. Still not following commands. Uncertain -: baseline. Plan for cardioversion. - Objective Resuscitation Status: Resuscitation Status DNR:Do Not Resuscitate MAR Reviewed: Yes Vital Signs & Weight: Vital Signs (12 hours) Temp Pulse Resp BP Pulse Ox 09/09/17 07:28 100 09/09/17 07:26 73 20 100 09/09/17 03:21 97.6 F 75 18 155/91 H 100 09/09/17 00:12 70 09/09/17 00:09 72 12 Weight Admit Weight 174 lb 13.225 oz Weight 171 lb 6.4 oz Most Recent Monitor Data Heart Rate from ECG 128 NIBP 187/107 NIBP BP-Mean 160 Respiration from ECG 26 SpO2 100 I&O: 09/08/17 09/09/17 09/10/17 06:59 06:59 06:59 Intake Total 1995.5 265 Balance 1995.5 265 Result Diagrams: 09/09/17 04:41 09/09/17 04:41 Phys Exam - Physical Examination Constitutional: NAD HEENT: moist MMs Respiratory: no wheezing, no rales, no rhonchi Cardiovascular: no significant murmur, irregular Gastrointestinal: soft Musculoskeletal: no edema Deviation from normal: nonverbal, not following directions, alert and watching TV Dx/Plan (1) Aspiration pneumonia Code(s): J69.0 - PNEUMONITIS DUE TO INHALATION OF FOOD AND VOMIT Status: Acute Qualifiers: Aspiration pneumonia type: due to gastric secretions Laterality: bilateral Comment: On Omnicef (2) Atrial fibrillation with RVR Code(s): I48.91 - UNSPECIFIED ATRIAL FIBRILLATION Status: Acute Comment: Cardioversion planned (3) Sepsis Code(s): A41.9 - SEPSIS, UNSPECIFIED ORGANISM Status: Resolved Qualifiers: Sepsis type: sepsis due to unspecified organism Qualified Code(s): A41.9 - Sepsis, unspecified organism (4) BPH (benign prostatic hyperplasia) Code(s): N40.0 - BENIGN PROSTATIC HYPERPLASIA WITHOUT LOWER URINRY TRACT SYMP Status: Chronic Qualifiers: Lower urinary tract symptom presence: unspecified whether lower urinary tract symptoms present Qualified Code(s): N40.0 - Benign prostatic hyperplasia without lower urinary tract symptoms (5) Dementia Code(s): F03.90 - UNSPECIFIED DEMENTIA WITHOUT BEHAVIORAL DISTURBANCE Status: Chronic Qualifiers: Dementia type: unspecified type (6) Dyslipidemia Code(s): E78.5 - HYPERLIPIDEMIA, UNSPECIFIED Status: Chronic (7) HTN (hypertension) Code(s): I10 - ESSENTIAL (PRIMARY) HYPERTENSION Status: Chronic Qualifiers: Hypertension type: essential hypertension Qualified Code(s): I10 - Essential (primary) hypertension - Plan cont current plan of care, continue antibiotics * . - Discharge Day Encounter end time: 12:10
[2017-09-09] MEDS ORDERED: CEFAZOLIN/Water 2 GM/20 ML SYRINGE SLOW IVP SCH (12:45)
[2017-09-09] MEDS: Nystatin Cream 30 GM TUBE TOP SCH (13:39)
[2017-09-09 13:47] LABS: PTT 29.8 SEC (22.9-36.1)
--- NOTE | 2017-09-09 13:51 | CON ---
DATE OF SERVICE: 09/09/2017 ELECTROPHYSIOLOGY CONSULTATION REPORT REFERRING PHYSICIAN: Dr. Vo. I am seeing Mr. Graves at our [facility] telemetry floor as an electrophysiology real estate consultant . His problems are: 1. Persistent atrial tachycardia/atypical atrial flutter 1A. Atrial fibrillation, unclear duration. 2. Prior history of stroke with paralysis and history of dementia. 3. Atrial fibrillation with tachybrady episodes, pauses over 4 seconds documented on medical therapy . 4. Respiratory failure, initially requiring intubation, but now extubated. 5. History of urinary tract infection, now resolved. 6. Coronary artery risk factors including dyslipidemia and hypertension. 7. History of colon cancer. ALLERGIES: IODINE, METOPROLOL, STATINS. MEDICATIONS: At home include digoxin, diphenhydramine, atenolol 50 twice a day, apixaban, Tylenol, g uaifenesin, pantoprazole, Milk of Magnesia, loperamide, lisinopril, buspirone, Tylenol, clonazepam, gabapentin, bisacodyl, baclofen, levalbuterol. SUBJECTIVE: Mr. Graves unable to give his history due to dementia and aphasia. History was obtained from the chart. It seems that this gentleman who was transferred from [place] originally in 04/27/2017, then got intubated due to respiratory failure. It was thought to be hyperc apnic respiratory failure. He was eventually extubated on the 08/25/2017 and underwent PEG placement . Currently, reasonably stable. He has no obvious issue with hypoxemia anymore. Vital sings documente d. REVIEW OF SYSTEMS: The rest of 12-point of systems is unavailable, but unremarkable. PAST MEDICAL HISTORY: As above. SOCIAL HISTORY: No history of smoking, ETOH or drug use documented. FAMILY HISTORY: Noncontributory. OBJECTIVE DATA: VITAL SIGNS: Blood pressure is 131/77, heart rate 109, respiratory 20, temperature 97.5 degrees Fahr enheit. GENERAL: He is alert and oriented man in no apparent distress. NECK: Supple. Jugular veins not distended. CHEST: Coarse without crackles. CARDIOVASCULAR: Heart sounds are regular to rate and rhythm. No murmur or gallop. ABDOMEN: Benign, bowel sounds positive. EXTREMITIES: Lower extremities without edema, clubbing or cyanosis. Pulses are adequate. NEUROLOGIC: Patient is aphasic and hemiplegic. SKIN: Without rash. Some left upper extremity swelling is noted. Right-sided PICC line in place. DATABASE: Telemetry strips are reviewed revealing an atrial flutter with variable AV conduction at t imes pauses over 4 seconds documented. ASSESSMENT AND PLAN: Mr. Graves is an 86-year-old unfortunate man with a history of extensive strok e likely chronic atrial flutter/fibrillation who was admitted with respiratory failure, felt to be du e to be chronic obstructive pulmonary exacerbation. History of normal left ventricular ejection frac tion in the past. He is very difficult to rate control and has episodes of bradyarrhythmias as well. It is reasonable to consider pacemaker implantation to be enable us to use for further atrioventric ular uzlema blocking agents and also he could be considered for atrioventricular zulema ablation as wel l in down the line, if rate control remains an issue. Risks and benefits were discussed with son, pr oceeded with the pacemaker implantation and has atrial flutter, it could be considered to have trial overdrive device for future atrial arrhythmia control as well. Anticoagulation is likely to resume post-pacemaker implantation.
[2017-09-09] MEDS ORDERED: Midazolam HCl 2 mg/2 ml Vial ONE (14:10)
[2017-09-09] MEDS ORDERED: Phenylephrine 10 MG/NS 250 ML 250 ML ONE (14:10)
[2017-09-09] MEDS ORDERED: Fentanyl 100 MCG/2 ML VIAL ONE (14:10)
[2017-09-09] MEDS ORDERED: CEFAZOLIN/Water 2 GM/20 ML SYRINGE ONE (14:26)
[2017-09-09] MEDS ORDERED: Propofol 200 MG/20 ML VIAL ONE (15:20)
[2017-09-09] MEDS ORDERED: Sodium Chloride 0.9% 1,000 ML IV SCH (16:15)
[2017-09-09] MEDS ORDERED: Acetaminophen/Codeine 30-300mg Tablet PO PRN ×2 (16:15)
[2017-09-09] MEDS ORDERED: HYDROcodone/Acetaminophen 5/325 mg Tablet PO PRN (16:15)
--- NOTE | 2017-09-09 17:19 | RAD ---
CHEST ONE VIEW: History: Pacemaker placement. Comparison: 08-28-17 FINDINGS: Cardiac silhouette is magnified by projection. Pulmonary vasculature is more engorged. Subtle opacity at the bases has the appearance of a small amount of bilateral pleural fluid. Mediastinum is midline with aortic calcification and a dual-lead left subclavian cardiac electronic device. There is no jasson dence of pneumothorax. IMPRESSION: 1. Borderline pulmonary vascular congestion with small amount of bilateral pleural fluid. 2. Atherosclerosis. 3. Left subclavian cardiac electronic device is in good radiographic position. No evidence of pneumot horax. POS: [facility]
[2017-09-09] MEDS: Apixaban 5 MG TAB PO SCH (17:42)
[2017-09-09] MEDS: HYDROcodone/Acetaminophen 5/325 mg Tablet PO PRN (17:54)
[2017-09-09] MEDS: hydrALAZINE 20 MG/ML VIAL SLOW IVP PRN (17:56)
[2017-09-10] MEDS: HYDROcodone/Acetaminophen 5/325 mg Tablet PO PRN ×2 (01:14→09:14)
[2017-09-10] MEDS: Sodium Chloride 0.9% 1,000 ML IV SCH (01:15)
[2017-09-10] MEDS: Milk Of Magnesia 30 ML UDCUP PER TUBE SCH ×3 (01:15→12:50)
[2017-09-10 06:07] VITALS: BMI 26.5
--- NOTE | 2017-09-10 08:08 | PDOC.PN ---
- Subjective Encounter Start Date: 09/10/17 Encounter Start Time: 08:30 Subjective: Patient with Pacemaker placed. Will allow adequate control of -: heart rate without risk of bradycardia. - Objective Resuscitation Status: Resuscitation Status DNR:Do Not Resuscitate MAR Reviewed: Yes Vital Signs & Weight: Vital Signs (12 hours) Temp Pulse Resp BP Pulse Ox 09/10/17 07:19 78 16 98 09/10/17 04:00 96.6 F L 101 H 20 138/73 94 L Weight Admit Weight 174 lb 13.225 oz Weight 174 lb 6.4 oz Most Recent Monitor Data Heart Rate from ECG 128 NIBP 187/107 NIBP BP-Mean 160 Respiration from ECG 26 SpO2 100 I&O: 09/09/17 09/10/17 09/11/17 06:59 06:59 06:59 Intake Total 2659 1620 Balance 2659 1620 Result Diagrams: 09/09/17 04:41 09/09/17 04:41 Phys Exam - Physical Examination Constitutional: NAD HEENT: moist MMs Respiratory: no wheezing, no rales, no rhonchi Cardiovascular: no significant murmur, no rub Gastrointestinal: soft, positive bowel sounds PEG in place, mildly distended, large soft BM this AM per nurse Deviation from normal: nonverbal, not following commands Dx/Plan (1) Aspiration pneumonia Code(s): J69.0 - PNEUMONITIS DUE TO INHALATION OF FOOD AND VOMIT Status: Acute Qualifiers: Aspiration pneumonia type: due to gastric secretions Laterality: bilateral Comment: On Omnicef (2) Atrial fibrillation with RVR Code(s): I48.91 - UNSPECIFIED ATRIAL FIBRILLATION Status: Acute Comment: Pacemaker placement to allow use of more AV zulema agents- done (3) Sepsis Code(s): A41.9 - SEPSIS, UNSPECIFIED ORGANISM Status: Resolved Qualifiers: Sepsis type: sepsis due to unspecified organism Qualified Code(s): A41.9 - Sepsis, unspecified organism (4) BPH (benign prostatic hyperplasia) Code(s): N40.0 - BENIGN PROSTATIC HYPERPLASIA WITHOUT LOWER URINRY TRACT SYMP Status: Chronic Qualifiers: Lower urinary tract symptom presence: unspecified whether lower urinary tract symptoms present Qualified Code(s): N40.0 - Benign prostatic hyperplasia without lower urinary tract symptoms (5) Dementia Code(s): F03.90 - UNSPECIFIED DEMENTIA WITHOUT BEHAVIORAL DISTURBANCE Status: Chronic Qualifiers: Dementia type: unspecified type (6) Dyslipidemia Code(s): E78.5 - HYPERLIPIDEMIA, UNSPECIFIED Status: Chronic (7) HTN (hypertension) Code(s): I10 - ESSENTIAL (PRIMARY) HYPERTENSION Status: Chronic Qualifiers: Hypertension type: essential hypertension Qualified Code(s): I10 - Essential (primary) hypertension - Plan cont current plan of care, continue antibiotics, DVT proph w/SCDs Resuming Eliquis. [facility] * . - Discharge Day Encounter end time: 09:00
--- NOTE | 2017-09-10 08:39 | RAD ---
SUPINE PORTABLE CHEST ONE VIEW: History: 86-year-old male post EPS pacemaker. Comparison: 08-09-17 FINDINGS: There is rotation to the left. There is some increased opacity changes within the lung bases, evidenc e for pleural effusion and possibly some underlying bibasilar pulmonary parenchymal changes. There is some bilateral vascular congestion. No pneumothorax. IMPRESSION: Minimal cardiomegaly with bilateral vascular congestion and bilateral pleural effusions with little c hange in appearance from prior study. No pneumothorax or other acute process. POS: [facility]
[2017-09-10] MEDS: predniSONE 50 MG TAB PER TUBE SCH (09:08)
[2017-09-10] MEDS: Apixaban 5 MG TAB PO SCH (09:08)
[2017-09-10] MEDS: Aspirin 325 MG TAB PER TUBE SCH (09:08)
[2017-09-10] MEDS: Cefdinir 300 MG CAP PER TUBE SCH (09:14)
[2017-09-10] MEDS: Nystatin Cream 30 GM TUBE TOP SCH (09:20)
[2017-09-10 14:49] VITALS: BP 160/97; TEMP 96.9
--- NOTE | 2017-09-10 17:41 | DIS ---
PRIMARY CARE PHYSICIAN: Carloz Abdi ADMISSION DIAGNOSES: 1. Acute hypercapnic respiratory failure. 2. Aspiration pneumonia. 3. Hypertension. 4. Atrial fibrillation. 5. History of stroke. DISCHARGE DIAGNOSES: 1. Aspiration pneumonia. 2. Atrial fibrillation with rapid ventricular rate. 3. Sepsis. 4. Benign prostatic hyperplasia. 5. Dementia. 6. Dyslipidemia. 7. Hypertension. 8. Previous stroke. CONSULTATIONS: 1. Pulmonology, Dr. Correia. 2. GI doctor, Dr. Mcallister. 3. Cardiology, Dr. Vo. 4. Electrophysiology, Dr. Miguel. PROCEDURES: 1. Cardiac catheterization with pacemaker placement on 09/10/2017. 2. PEG tube placement. SUMMARY OF HOSPITAL COURSE: This is an 86-year-old white male intermediate patient who had a stroke about a year ago, has been having difficulty with aphasia and altered mental status. He was brought to the ER by EMS for decreased responsiveness and hypoxia and also was noted to have vomitus when EMS saw him. He was intubated in the emergency room. Dr. Correia was consulted. The patient was treat ed with antibiotics for acute aspiration pneumonia. He eventually was weaned off of the ventilator. The patient had atrial fibrillation with difficult to control rate throughout his hospitalization, h e was previously on Eliquis for anticoagulation, his rates would go from very tachycardic to bradycar dic. Given the difficulty controlling the rate, Dr. Vo was consulted and Dr. Miguel for pacemak er placement so that he could have adequate AV zulema blocking done without causing bradycardia. The patient did well with that. He also was found to be an aspiration risk and so a PEG tube was placed. The patient was tolerating tube feeds well. He did continue to remain somewhat agitated throughout his hospital course, had aphasia and was not able to follow commands well and was felt to be at his baseline. Family desired that he go back to the intermediate care and so he is being discharged back to [facility]. DISCHARGE MANAGEMENT: Discharged to [facility]. DISCHARGE MEDICATIONS: 1. Keflex 500 mg 4 times a day for 7 days. 2. DuoNebs as needed. 3. Xopenex as needed. 4. Robitussin-DM as needed. 5. Protonix 40 mg daily. 6. Gabapentin 100 mg twice a day. 7. Digoxin 0.125 mg daily. 8. Prednisone 50 mg daily. 9. Magnesium hydroxide 30 mL per tube q.4 h. 10. Cardizem 30 mg at a.c. and at bedtime. 11. Aspirin 325 mg daily. 12. Eliquis 5 mg twice a day. 13. Acetaminophen with codeine as needed for pain. 14. Acetaminophen q. 4 hours as needed for fever. DIET: Tube feeding diet. ACTIVITIES: Patient is bed bound with supply insertion of PEG tube care.
--- NOTE | 2017-09-10 22:13 | PRG ---
DATE OF SERVICE: 09/10/2017 FOLLOW-UP NOTE AND PACEMAKER INTERROGATION REPORT SUBJECTIVE: Mr. Graves seems to be stable 1-day post-pacemaker implantation. OBJECTIVE: VITAL SIGNS: His blood pressure 127/58, heart rate 84, respirations 18, temperature 96.8 degrees Fah renheit. DIAGNOSTIC DATA: The chest x-ray reveals minimal cardiomegaly, bilateral vascular congestion, bilate ral pleural effusions, low change from prior study. No pneumothorax is noted. Interrogation reveals a [employer]onic Advisa dual chamber pacemaker, the battery voltage is 3.09 volts. Lead impedance is normal at 437 ohms in atrium and 456 in RV. Capture threshold 0.5 volts at 0.4 mil liseconds in the RV sensing 11.1 millivolts sensing and the atrial flutter is 4 millivolts. CONCLUSION: 1. Adequate functioning dual chamber pacemaker 1-day post-implant. 2. Atrial tachycardia. Resume anticoagulation and consider overdrive pacing termination and turning automatic atrial ATP therapies after atrial lead maturation in 4 to 6 weeks. 3. Routine follow up for pacemaker checks in the clinic in 10 days and antibiotics for 1 week.
--- NOTE | 2017-10-12 15:41 | EKG ---
Test Reason : RESP DISTRESS Blood Pressure : / mmHG Vent. Rate : 095 BPM Atrial Rate : 095 BPM P-R Int : 000 ms QRS Dur : 120 ms QT Int : 400 ms P-R-T Axes : 000 041 -35 degrees QTc Int : 502 ms Sinus rhythm with marked sinus arrhythmia with 1st degree A-V block Right bundle branch block Abnormal ECG Confirmed by MELANIE LOWE, PETR ([id number]), content editor SEAN RUTH ([id number]) on 10/12/2017 3:41:27 PM Referred By: Confirmed By:PETR NAVARRO MD
== END 2017-09-10 14:18 | DRG 871 ==
LOC: ERS 16:44 → CCU 20:00 → 2NO 09-01 16:49
PROVIDERS: ADMIT Internal Medicine; ATTEND Internal Medicine
PROC: 0BH17EZ Insertion of Endotracheal Airway into Trachea, Via Natural or Artificial Opening (ICD-10-PCS; principal; 2017-08-28)
PROC: 5A1935Z Respiratory Ventilation, Less than 24 Consecutive Hours (ICD-10-PCS; 2017-08-28)
PROC: 0DH63UZ Insertion of Feeding Device into Stomach, Percutaneous Approach (ICD-10-PCS; 2017-09-04)
PROC: 0JH606Z Insertion of Pacemaker, Dual Chamber into Chest Subcutaneous Tissue and Fascia, Open Approach (ICD-10-PCS; 2017-09-09)
PROC: 02HK3JZ Insertion of Pacemaker Lead into Right Ventricle, Percutaneous Approach (ICD-10-PCS; 2017-09-09)
PROC: 02H63JZ Insertion of Pacemaker Lead into Right Atrium, Percutaneous Approach (ICD-10-PCS; 2017-09-09)
DX: A41.9 Sepsis, unspecified organism (principal); J96.02 Acute respiratory failure with hypercapnia; J69.0 Pneumonitis due to inhalation of food and vomit; G93.41 Metabolic encephalopathy; E46 Unspecified protein-calorie malnutrition; J96.01 Acute respiratory failure with hypoxia; R13.12 Dysphagia, oropharyngeal phase; I69.351 Hemiplegia and hemiparesis following cerebral infarction affecting right dominant side; F03.90 Unspecified dementia, unspecified severity, without behavioral disturbance, psychotic disturbance, mood disturbance, and anxiety; I48.91 Unspecified atrial fibrillation; I48.4 Atypical atrial flutter; I10 Essential (primary) hypertension; E86.0 Dehydration; N40.0 Benign prostatic hyperplasia without lower urinary tract symptoms; E78.5 Hyperlipidemia, unspecified; Z74.01 Bed confinement status; Z78.1 Physical restraint status; Z85.038 Personal history of other malignant neoplasm of large intestine; F41.9 Anxiety disorder, unspecified; I69.320 Aphasia following cerebral infarction; Z66 Do not resuscitate; R53.81 Other malaise; I69.391 Dysphagia following cerebral infarction; Z88.2 Allergy status to sulfonamides; Z88.8 Allergy status to other drugs, medicaments and biological substances; Z91.041 Radiographic dye allergy status; Z79.01 Long term (current) use of anticoagulants; Z68.26 Body mass index [BMI] 26.0-26.9, adult; Z90.49 Acquired absence of other specified parts of digestive tract; R65.20 Severe sepsis without septic shock
CPT/HCPCS: 31500; 33249; 36415; 51702; 71010; 80048; 80053; 80162; 82553; 82805; 83735; 84100; 84484; 85025; 85610; 85730; 90471; 90682; 93005; 94002; 94003; 94640; 94644; 96365; 96366; 96375; A4216; C1785; C1898; C9113; G0008; G8978-GP-CN; G8979-GP-CM; G8996-GN-CK; G8997-GN-CK; J0360; J0456; J0696; J1160; J1630; J1650; J1956; J2060; J2250; J2270; J2543; J2704; J2920; J2930; J3010; J3490; J7050; J7611; J7620; Q2036